=== PATIENT | male | born 1960 ===

== ENCOUNTER 2020-11-10 16:27 | Outpatient (REF) | payer MEDICAID, SELFPAY ==
--- NOTE | ~2020-11-10 | XR_ITS ---
EXAMINATION: XR LUMBOSACRAL SPINE WITH OBLIQUES CLINICAL INFORMATION: Lumbago with sciatica, right side. COMPARISON: None . TECHNIQUE: AP, both oblique, and lateral views of the lumbar spine. Lateral view of the lumbosacral junction. FINDINGS: There is normal lumbar lordosis. The vertebral heights and alignment is normal. On oblique views, there is no pars defect or listhesis. There is mild ventral spondylosis. No acute fracture or lytic process seen. The SI joints are symmetrical and normal. XR/XR lumbar spine 4V min IMPRESSION: Mild ventral spondylosis, most prominent at the L1-L2 disc level. No pars defect, listhesis, fracture or lytic process.
== END 2020-11-10 16:28 | disposition home or self-care (01) ==
LOC: HO.XRAY 16:27
PROVIDERS: PCP Internal Medicine; Visit Provider Emergency Medicine
DX: M54.41 Lumbago with sciatica, right side (principal)
CPT/HCPCS: 72110

== ENCOUNTER 2021-04-29 09:23 | Day surgery (SDC) | payer MEDICAID, SELFPAY ==
--- NOTE | 2021-04-28 14:15 | P.CONAN_ITS ---
Documented by User: Iraida Singh NP 04/28/21 14:17 HPI - Anesthesia Eval Consult details Narrative: 60yo M for ?Upper Endoscopy with Balloon Dilitation [facility] Past Medical History Medical History HTN (hypertension) Surgical History Surgical History H/O esophagectomy (~1993) Social History Social History Patient Tobacco Use Status: Never used Tobacco Use of substances other than those prescribed or required for medical reasons: No Are you DNR?: No Advance Directives: No Advance Directives Information Provided: No Meds Allergies Allergy/AdvReac Type Severity Reaction Status Date / Time No Known Allergies Allergy Unknown Unverified 05/15/20 15:55 Exam Exam Date and Time: April 28, 2021 1415 Assessment and Plan Assessment Anesthesia Assessment: Chart Reviewed Documented by User: Mary Jo Espinosa MD 04/29/21 11:11 [facility] Past Medical History Medical History HTN (hypertension) Surgical History Surgical History H/O esophagectomy (~1993) History of Problems with Anesthesia: No Social History Social History Patient Tobacco Use Status: Never used Tobacco Use of substances other than those prescribed or required for medical reasons: No Are you DNR?: No Advance Directives: No Advance Directives Information Provided: No Meds Allergies Allergy/AdvReac Type Severity Reaction Status Date / Time No Known Allergies Allergy Unknown Unverified 05/15/20 15:55 Exam Airway Mallampati Class: I TM Dist: >3cm Neck ROM: Full Heart: RRR Lungs: CTA Assessment and Plan Assessment Anesthesia Assessment: Anesthesia Plan Discussed Final Anesthetic Review History of Problems with Anesthesia: No NPO: Yes ASA Class: II Final Preanesthetic Review: Meds/Allgs Chart Reviewed, Consent Obtained/Reviewed and Anes Risks/Benef Reviewed Patient Risk: Low Procedure Risk: Intermediate Anesthetic Plan Anesthetic Plan: MAC: Disposition: Standard PACU
[2021-04-29 10:26] VITALS: BP 140/85; PULSE 55; RESP 16; TEMP 36.1; BMI 24.5
[2021-04-29] MEDS: Lactated Ringers 1,000 ML 100 ML IVCONT (10:59)
[2021-04-29 11:30] VITALS: BP 103/66; PULSE 51; RESP 18; TEMP 36.4; O2SAT 99
--- NOTE | 2021-04-29 11:32 | PM.OP ---
Brief Operative Note Date of Service: 04/29/21 Pre-op diagnosis: Dysphagia Post-op diagnosis: other (Minimal gastric retention, normal esophagogastric anastomosis) Procedure: EGD with Balloon dilation of esophagogastric anastomosis Surgeon: Adarsh Marie Anesthesia: MAC Was an Super[employer] used for this Procedure?: No Estimated blood loss (mL): 3.0 Pathology: none sent Condition: stable Disposition: PACU
[2021-04-29 11:45] VITALS: BP 108/69; PULSE 47; RESP 18; O2SAT 97
--- NOTE | 2021-04-29 11:47 | OP_ITS ---
SURGEON: Adarsh Marie MD INDICATIONS: The patient presents for evaluation of intermittent dysphagia and early satiety. Full consent has been obtained from him for this, including risks of bleeding and perforation. PREOPERATIVE DIAGNOSIS: POSTOPERATIVE DIAGNOSIS: PROCEDURE PERFORMED: Esophagogastroduodenoscopy with balloon dilation of esophagogastric anastomosis. ESTIMATED BLOOD LOSS: COMPLICATIONS: ANESTHESIA: Monitored anesthesia care. ASSISTANTS: SPECIMENS: PREOPERATIVE DIAGNOSES: Dysphagia and early satiety. POSTOPERATIVE DIAGNOSES: Dysphagia and early satiety, normal esophagogastric anastomosis, minimal gastric retention. DESCRIPTION OF PROCEDURE: The patient was placed in the left lateral decubitus position. The Olympus video gastroscope was passed in the posterior oropharynx and upper esophagus under direct vision. At 20 cm, was his esophagogastric anastomosis. This area appeared patent without any sign of stricture, inflammation, nor mass. The scope was easily passed this. The scope was advanced to the pylorus and duodenum was cannulated to the descending portion. The duodenum including the bulb appeared normal without mass or ulceration. The scope was withdrawn back into the stomach. The gastric antrum and body appeared normal. There was a small amount of retained food in the antral area, but this was quite minimal. The scope was retroflexed visualizing the proximal stomach carefully, which appeared normal, without any sign of mass or ulceration. The scope was straightened out and withdrawn back into the proximal esophagus. Given the symptomatology, I did use a [employer] 20 mm balloon to dilate the esophagogastric anastomosis for 60 seconds at the recommended pressure. There was a small amount of heme noted post dilation, but the anastomosis itself really did not appear to be any different. The esophageal mucosa proximal to this appeared normal. The scope was withdrawn from the patient. He tolerated the procedure well and was returned to the recovery area in stable condition. IMPRESSION: 1. Status post balloon dilation of esophagogastric anastomosis. 2. Minimal gastric retention. PLAN: The patient will continue his daily omeprazole. I do suspect that a lot of his upper GI symptoms of more related to his anatomy from the previous esophagectomy and gastric pull-through anastomosis. If things are stable, I will see him in 1 year for a screening colonoscopy. MD IVONE Pederson/JAMALL / [id number]
[2021-04-29 12:00] VITALS: BP 118/83; PULSE 53; RESP 18; O2SAT 97
== END 2021-04-29 12:31 | disposition home or self-care (01) ==
PROVIDERS: PCP Internal Medicine; Visit Provider Internal Medicine
PROC: (CPT 43245; principal; 2021-04-29 11:00)
DX: R13.10 Dysphagia, unspecified (principal); R13.14 Dysphagia, pharyngoesophageal phase; R68.81 Early satiety; K31.89 Other diseases of stomach and duodenum; Z90.49 Acquired absence of other specified parts of digestive tract; Z98.0 Intestinal bypass and anastomosis status; I10 Essential (primary) hypertension; Z79.899 Other long term (current) drug therapy
CPT/HCPCS: 43245; C1726

== ENCOUNTER 2022-08-04 10:07 | Outpatient (REF) | payer MEDICAID, SELFPAY ==
--- NOTE | ~2022-08-04 | FL_ITS ---
EXAMINATION: FL BARIUM SWALLOW CLINICAL INFORMATION: Gastroesophageal reflux. Previous thoracic surgery. COMPARISON: None. TECHNIQUE: Barium swallow examination is performed using fluoroscopic evaluation in addition to multiple fluoroscopic spot views. The patient is imaged both upright and prone and using both thick and thin sulfate along with effervescent granules. Fluoroscopy time: 3.1 minutes. DAP: 14.3 Gy-cm2. Images: 40. FINDINGS: Following oral administration of thick barium and barium-coated turkey in upright view, there is normal progression of bolus from the oral cavity to the pharynx and into the stomach which is pulled up and anastomosed with the proximal esophagus at the level of the first or second thoracic vertebra. There is mild narrowing at the proximal anastomosis resulting in mild ballooning of the proximal esophagus. The stomach distends well with time with no intrinsic abnormality seen involving the stomach. However, there is significant narrowing and delay in the emptying of the stomach at the duodenal bulb/distal pylorus questioning stricture. No laryngeal penetration or aspiration seen. No mucosal abnormality involving the stomach. FL/FL barium swallow IMPRESSION: Suspect narrowing along the proximal esophageal gastric anastomosis and upper thoracic spine. Suspect narrowing or stricture involving the pylorus/duodenal bulb. Recommend correlation with gastroscopy for further evaluation.
== END 2022-08-04 10:08 | disposition home or self-care (01) ==
LOC: HO.XRAY 10:07
PROVIDERS: PCP Internal Medicine; Visit Provider Internal Medicine
DX: J39.2 Other diseases of pharynx (principal); K21.9 Gastro-esophageal reflux disease without esophagitis
CPT/HCPCS: 74220

== ENCOUNTER 2023-02-17 06:14 | Day surgery (SDC) | payer MEDICAID, SELFPAY ==
--- NOTE | 2023-02-16 08:20 | HO.ANESPROP2 ---
Documented by User: Iraida Singh NP 02/16/23 08:20 HPI - Anesthesia Eval Consult details Narrative: 62yo M for Upper Endoscopy with Balloon Dilitation [facility] Past Medical History Medical History HTN (hypertension) Surgical History Surgical History (Updated 02/16/23 @ 05:37 by Gladis Reeder RN) H/O esophagectomy (~1993) Hx of esophagogastroduodenoscopy History of Problems with Anesthesia: No Social History Social History Patient Tobacco Use Status: Never used Tobacco Use of substances other than those prescribed or required for medical reasons: No Are you DNR?: No Advance Directives: No Advance Directives Information Provided: Yes Meds Allergies Allergy/AdvReac Type Severity Reaction Status Date / Time No Known Allergies Allergy Unknown Unverified 05/15/20 15:55 Home Medications Medication Instructions Recorded Confirmed Last Taken Type amlodipine 10 mg tablet 10 mg PO DAILY 02/16/23 02/16/23 Unknown History hydrochlorothiazide 25 mg tablet 25 mg PO DAILY 02/16/23 02/16/23 Unknown History omeprazole 40 mg capsule,delayed 40 mg PO 02/16/23 02/16/23 Unknown History release Exam Exam Date and Time: February 16, [id number] Assessment and Plan Assessment Anesthesia Assessment: Chart Reviewed Final Anesthetic Review History of Problems with Anesthesia: No Documented by User: Bessy Narayanan MD 02/17/23 11:00 [facility] Past Medical History Medical History HTN (hypertension) Family History Family history of problems with anesthesia: No Surgical History Surgical History (Updated 02/16/23 @ 05:37 by Gladis Reeder RN) H/O esophagectomy (~1993) Hx of esophagogastroduodenoscopy Social History Social History Patient Tobacco Use Status: Never used Tobacco Use of substances other than those prescribed or required for medical reasons: No Are you DNR?: No Advance Directives: No Advance Directives Information Provided: Yes Meds Allergies Allergy/AdvReac Type Severity Reaction Status Date / Time No Known Allergies Allergy Unknown Unverified 05/15/20 15:55 Home Medications Medication Instructions Recorded Confirmed Last Taken Type amlodipine 10 mg tablet 10 mg PO DAILY 02/16/23 02/16/23 Unknown History hydrochlorothiazide 25 mg tablet 25 mg PO DAILY 02/16/23 02/16/23 Unknown History omeprazole 40 mg capsule,delayed 40 mg PO 02/16/23 02/16/23 Unknown History release Exam Airway Mallampati Class: I TM Dist: >3cm Neck ROM: Full Loose/Missing/Broken Teeth: No Heart: rr Lungs: cta Assessment and Plan Assessment Anesthesia Assessment: Anesthesia Plan Discussed Final Anesthetic Review Family History of Problems with Anesthesia: No NPO: Yes ASA Class: II Final Preanesthetic Review: No Changes in Pt Med Stat, Meds/Allgs Chart Reviewed, Consent Obtained/Reviewed and Anes Risks/Benef Reviewed Patient Risk: Low Procedure Risk: Low Anesthetic Plan Anesthetic Plan: MAC: Disposition: Standard PACU
[2023-02-17 06:27] VITALS: BP 143/75; PULSE 59; RESP 18; TEMP 36.2; O2SAT 98; BMI 25.0
[2023-02-17] MEDS: Lactated Ringers 1,000 ML 100 ML IVCONT (07:12)
[2023-02-17 08:08] VITALS: BP 118/64; PULSE 58; RESP 16; TEMP 36.2; O2SAT 96
--- NOTE | 2023-02-17 08:17 | PM.OP ---
Brief Operative Note Date of Service: 02/17/23 Pre-op diagnosis: Dysphagia, early satiety Post-op diagnosis: other (Chronic gastritis, Patent EG anastomosis and pylorus) Procedure: EGD with balloon dilation of pylorus and EG anastomosis with an 18mm pyloric balloon Surgeon: Adarsh Marie Was an Back Tender Insulation Board used for this Procedure?: No Estimated blood loss (mL): 2.0 Pathology: none sent Condition: stable Disposition: PACU
[2023-02-17 08:23] VITALS: BP 122/80; PULSE 63; RESP 16; O2SAT 98
--- NOTE | 2023-02-17 08:33 | OP_ITS ---
DATE OF SERVICE: 02/17/2023 SURGEON: Adarsh Marie MD INDICATIONS: The patient presents for evaluation of dysphagia and early satiety, status post previous esophagectomy with gastric pull-through and esophagogastric anastomosis. Full consent was obtained from him for this, including risks of bleeding and perforation. PREOPERATIVE DIAGNOSIS: Dysphagia and early satiety. POSTOPERATIVE DIAGNOSIS: Dysphagia and early satiety, chronic appearing gastritis of entire stomach, patent pylorus and patent esophagogastric anastomosis. PROCEDURE PERFORMED: Esophagogastroduodenoscopy with balloon dilation of the pylorus and balloon dilation of esophagogastric anastomosis. ESTIMATED BLOOD LOSS: COMPLICATIONS: ANESTHESIA: Monitored anesthesia care. ASSISTANTS: SPECIMENS: DESCRIPTION OF PROCEDURE: The patient was placed in the left lateral decubitus position. The Olympus video gastroscope was passed in the posterior oropharynx and upper esophagus under direct vision. The esophagogastric anastomosis was at approximately 18 cm. There was no sign of any inflammation, mass, nor stricture. The scope easily passed this into the stomach. There was a small amount of residual food and liquid. The majority of this was able to be suctioned away easily. I was able to visualize the pyloric channel, which also appeared patent and allowed easy passage of the scope into the descending duodenum. The duodenal bulb and descending duodenum appeared normal. The pyloric channel appeared patent, but given his symptoms I did use a [employer] pyloric balloon to dilate at 18 mm at the recommended pressure for 30 seconds. Post dilation there was heme noted and some disruption of the pylorus. I did not proceed with any further dilation. The gastric antrum and body otherwise appeared normal. Motility appeared to be somewhat diminished. The scope was retroflexed, visualizing the proximal stomach, which appeared normal, without any sign of mass or ulceration. The scope was then straightened and withdrawn back into the esophagus. Again, the esophagogastric junction appeared patent, but I did use an another pyloric dilating balloon to dilate the esophagogastric anastomosis to a diameter of 18 mm for 30 seconds. Post dilation, there was minimal heme noted. Again, the anastomosis was quite patent. The scope was then withdrawn from the patient. The small area of esophagus remaining did appear normal. He tolerated the procedure well and was returned to recovery area in stable condition. IMPRESSION: 1. Chronic appearing gastritis. 2. Patent pylorus and esophagogastric anastomosis, status post balloon dilation of each. PLAN: The patient will continue on his omeprazole. I think the main issue with his eating and nocturnal reflux is his anatomy and perhaps some decreased motility. He was advised to eat small meals and to stay upright for at least several hours after eating, especially in the evening. He was advised not to eat for several hours before bedtime as well, to see if that would help to decrease his nocturnal reflux symptoms. Of note, he is scheduled for a screening colonoscopy with me on 04/27, and we shall follow up at that point. MD IVONE Pederson/KENIA / [id number] MTDD
[2023-02-17 08:38] VITALS: BP 118/85; PULSE 52; RESP 16; TEMP 36.1; O2SAT 98
== END 2023-02-17 09:18 | disposition home or self-care (01) ==
PROVIDERS: PCP Internal Medicine; Visit Provider Internal Medicine
PROC: (CPT 43245; principal; 2023-02-17 07:30)
DX: R13.14 Dysphagia, pharyngoesophageal phase (principal); R68.81 Early satiety; K29.50 Unspecified chronic gastritis without bleeding; Z90.49 Acquired absence of other specified parts of digestive tract; Z98.0 Intestinal bypass and anastomosis status; Z79.899 Other long term (current) drug therapy
CPT/HCPCS: 43245; 43249; C1726

== ENCOUNTER 2023-07-27 09:15 | Day surgery (SDC) | payer MEDICAID, SELFPAY ==
--- NOTE | 2023-07-26 09:45 | P.CONAN_ITS ---
Documented by User: Iraida Singh NP 07/26/23 09:45 HPI - Anesthesia Eval Consult details Narrative: 62yo M for Colonoscopy [facility] Past Medical History Medical History HTN (hypertension) Family History Family history of problems with anesthesia: No Surgical History Surgical History (Updated 02/16/23 @ 05:37 by Gladis Reeder RN) Hx of esophagogastroduodenoscopy H/O esophagectomy (~1993) History of Problems with Anesthesia: No Social History Social History Patient Tobacco Use Status: Never used Tobacco Use of substances other than those prescribed or required for medical reasons: No Are you DNR?: No Advance Directives: No Advance Directives Information Provided: Yes Recently lost weight without trying: No Nutrition Risks: No Nutritional Risk Meds Allergies Allergy/AdvReac Type Severity Reaction Status Date / Time No Known Allergies Allergy Unknown Unverified 05/15/20 15:55 Home Medications Medication Instructions Recorded Confirmed Last Taken Type amlodipine 10 mg tablet 10 mg PO DAILY 02/16/23 02/16/23 Unknown History hydrochlorothiazide 25 mg tablet 25 mg PO DAILY 02/16/23 02/16/23 Unknown History omeprazole 40 mg capsule,delayed 40 mg PO 02/16/23 02/16/23 Unknown History release Assessment and Plan Assessment Anesthesia Assessment: Chart Reviewed Final Anesthetic Review Family History of Problems with Anesthesia: No History of Problems with Anesthesia: No Documented by User: Pradip Ledesma MD 07/27/23 11:14 [facility] Past Medical History Medical History HTN (hypertension) Surgical History Surgical History (Updated 02/16/23 @ 05:37 by Gladis Reeder RN) Hx of esophagogastroduodenoscopy H/O esophagectomy (~1993) Social History Social History Patient Tobacco Use Status: Never used Tobacco Use of substances other than those prescribed or required for medical reasons: No Are you DNR?: No Advance Directives: No Advance Directives Information Provided: Yes Recently lost weight without trying: No Nutrition Risks: No Nutritional Risk Meds Allergies Allergy/AdvReac Type Severity Reaction Status Date / Time No Known Allergies Allergy Unknown Unverified 05/15/20 15:55 Home Medications Medication Instructions Recorded Confirmed Last Taken Type amlodipine 10 mg tablet 10 mg PO DAILY 02/16/23 02/16/23 Unknown History hydrochlorothiazide 25 mg tablet 25 mg PO DAILY 02/16/23 02/16/23 Unknown History omeprazole 40 mg capsule,delayed 40 mg PO 02/16/23 02/16/23 Unknown History release Exam Airway Mallampati Class: I TM Dist: >3cm Neck ROM: Full Partial: Lower Heart: ok Lungs: ok Assessment and Plan Assessment Anesthesia Assessment: Anesthesia Plan Discussed Final Anesthetic Review NPO: Yes ASA Class: II Final Preanesthetic Review: No Changes in Pt Med Stat, Meds/Allgs Chart Reviewed, Consent Obtained/Reviewed and Anes Risks/Benef Reviewed Patient Risk: Low Procedure Risk: Low Anesthetic Plan Anesthetic Plan: MAC: and Agree w/ Assess. and Plan Disposition: Standard PACU
[2023-07-27 09:51] VITALS: BMI 25.6
[2023-07-27 09:56] VITALS: BP 141/77; PULSE 48; RESP 16; TEMP 36.8; O2SAT 99
[2023-07-27 10:00] VITALS: BMI 25.6
[2023-07-27] MEDS: Lactated Ringers 1,000 ML 100 ML IVCONT (10:10)
--- NOTE | 2023-07-27 11:47 | PM.OP ---
Brief Operative Note Date of Service: 07/27/23 Pre-op diagnosis: Screening Post-op diagnosis: other (Diverticulosis) Procedure: Colonoscopy to the anastomosis and small bowel Surgeon: Adarsh Marie MD Anesthesia: MAC Was an Insulation Sprayer used for this Procedure?: No Estimated blood loss (mL): 0 Pathology: none sent Condition: stable Disposition: PACU
[2023-07-27 11:50] VITALS: BP 85/53; PULSE 56; RESP 14; TEMP 36.6; O2SAT 95
[2023-07-27 12:05] VITALS: BP 102/57; PULSE 43; RESP 16; TEMP 36.1; O2SAT 99
--- NOTE | 2023-07-27 18:30 | OP_ITS ---
DATE OF SERVICE: 07/27/2023 SURGEON: Adarsh Marie MD INDICATIONS: The patient presents for evaluation of colorectal cancer screening. Full consent was obtained from him for this, including risks of bleeding and perforation. PREOPERATIVE DIAGNOSIS: Colorectal cancer screening. POSTOPERATIVE DIAGNOSIS: PROCEDURE PERFORMED: Colonoscopy to the anastomosis and small bowel. ESTIMATED BLOOD LOSS: COMPLICATIONS: ANESTHESIA: Preop medication used, monitored anesthesia care. ASSISTANTS: SPECIMENS: POSTOPERATIVE DIAGNOSES: Colorectal cancer screening, sigmoid diverticulosis, and internal hemorrhoids. DESCRIPTION OF PROCEDURE: The patient was placed in the left lateral decubitus position. The digital rectal exam revealed no abnormalities. The Olympus video pediatric colonoscope was entered into the rectum and advanced to the level of the anastomosis. The small bowel was cannulated and appeared normal. The scope was withdrawn back in the colon. The anastomosis appeared normal. The scope was slowly withdrawn assessing all mucosal surfaces carefully. Preparation was excellent. I did not visualize any sign of polyps, colitis, nor angiodysplasia. There was a mild amount of sigmoid diverticulosis. In the rectum, scope was retroflexed visualizing internal hemorrhoids, but no other pathology. The rectal mucosa appeared normal. Scope was straightened and withdrawn from the patient. He tolerated the procedure well and was returned to recovery area in stable condition. IMPRESSION: 1. Diverticulosis. 2. Internal hemorrhoids. PLAN: Given today's negative exam, I would recommend a followup coloscopy in 10 years for further screening. He will continue omeprazole for his history of reflux. He will see me on a p.r.n. basis. Adarsh Marie MD RMW/MODL / [id number]
== END 2023-07-27 12:42 | disposition home or self-care (01) ==
PROVIDERS: PCP Internal Medicine; Visit Provider Internal Medicine
PROC: 0DJD8ZZ Inspection of Lower Intestinal Tract, Via Natural or Artificial Opening Endoscopic (ICD-10-PCS; CPT 45378; principal; 2023-07-27 10:40)
DX: Z12.11 Encounter for screening for malignant neoplasm of colon (principal); K57.30 Diverticulosis of large intestine without perforation or abscess without bleeding; K64.8 Other hemorrhoids; K63.89 Other specified diseases of intestine; I10 Essential (primary) hypertension
CPT/HCPCS: 45378; J2704; J3010

== ENCOUNTER 2023-11-10 08:33 | Outpatient (REF) | payer MEDICAID, SELFPAY ==
--- NOTE | ~2023-11-10 | XR_ITS ---
EXAMINATION: XR SHOULDER, LEFT CLINICAL INFORMATION: Pain for 4 days COMPARISON: None available. TECHNIQUE: Four views of the left shoulder. FINDINGS: Visualized portion of proximal left humerus demonstrate no fracture. Humeral head demonstrates good articulation the glenoid fossa. There are minimal degenerative changes of the glenohumeral and acromioclavicular joints. Visualized left-sided ribs and lung parenchyma are unremarkable. XR/XR shoulder LT min 2V IMPRESSION: Minimal degenerative changes of the left shoulder.
== END 2023-11-10 08:34 | disposition home or self-care (01) ==
LOC: HO.HHCX 08:33
PROVIDERS: Visit Provider Emergency Medicine
DX: M25.512 Pain in left shoulder (principal)
CPT/HCPCS: 73030

== ENCOUNTER 2024-01-10 18:24 | Outpatient (REF) | payer MEDICAID, SELFPAY ==
--- NOTE | ~2024-01-10 | MR_ITS ---
EXAMINATION: MR SHOULDER WITHOUT CONTRAST, LEFT CLINICAL INFORMATION: Left shoulder pain and weakness. Evaluate for rotator cuff tendon tear. COMPARISON: Left shoulder radiographs dated 11/10/2023. TECHNIQUE: MRI of the shoulder without contrast was performed on a high-field scanner. FINDINGS: Evaluation somewhat limited due to the lack of fat saturation. ROTATOR CUFF: Supraspinatus and infraspinatus tendinosis. Complete, full-thickness tear of the supraspinatus tendon with extension into the anterior leading edge of the infraspinatus tendon. Overall tearing measures up to 3.4 x 2.8 cm (AP by ML). Mild subscapularis tendinosis. No muscle atrophy or fatty infiltration. BICEPS: Intact. CORACOACROMIAL ARCH: The undersurface of the acromion is curved with subacromial spurring. [id number] acromioclavicular osteoarthritis. LABRUM/CAPSULE: No definite displaced labral tear; however, evaluation limited due to the lack of fat saturation and patient motion. Intact inferior joint capsule. GLENOHUMERAL JOINT/MARROW: Grossly intact articular cartilage. No evidence of acute osseous injury. MR/MR shoulder LT wo con IMPRESSION: 1. Supraspinatus and infraspinatus tendinosis with a complete, full-thickness tear of the supraspinatus tendon extending into the anterior leading edge of the infraspinatus tendon. Overall tearing measures 3.4 x 2.8 cm (AP x ML). Mild subscapularis tendinosis. 2. [id number] acromioclavicular osteoarthritis with subacromial spurring. 3. No definite labral tear; however, evaluation is limited due to the lack of fat saturation and patient motion.
== END 2024-01-10 18:25 | disposition home or self-care (01) ==
LOC: HO.MRI 18:24
PROVIDERS: PCP Internal Medicine; Visit Provider Registered Nurse
DX: M25.512 Pain in left shoulder (principal); R29.898 Other symptoms and signs involving the musculoskeletal system
CPT/HCPCS: 73221

== ENCOUNTER 2024-01-24 08:13 | Outpatient (AMB) | payer MEDICAID, SELFPAY ==
--- NOTE | 2024-01-24 08:20 | MHC.OFFVIS ---
Vital Signs 01/24/24 08:23 Height 5 ft 6 in Weight 158 lb BMI 25.5 Intake Visit Reasons: New Pt - Left Shoulder [place] [facility] [place] Intake Note: Quinton a 63 year old 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 male who presents today as a new patient for an evaluation of left shoulder. MRI done. Patient reports his pain has been present for about 2 months, he does not recall any injury. He has constant pain in his shoulder and is unable to reach behind his back. He was referred to PT however he has not started. His pain increased with at home exercises. Finds no relief with ibuprofen. Denies numbness or tingling. he was sent to PT b Allergies No Known Allergies Allergy (Unknown, Unverified 01/24/24 08:23) HPI HPI New Pt - Left Shoulder [place] done [place] [facility] [place]: Details: 63-year-old 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 male who presents to the office today for evaluation of left shoulder pain for 2 months. He states he has constant pain in his shoulder that is aggravated with reaching back, certain movements and with working on home exercises. He denies any numbness or tingling. He was referred to physical therapy however he has not started it. He finds no relief with ibuprofen and meloxicam. He has not had any injury in the past. 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 Review of Systems Const All systems reviewed & are unremarkable except as noted in HPI and below Physical Exam Vital Signs: BMI result Body Mass Index 25.5 Const General: cooperative, healthy appearing, comfortable, no acute distress, well developed and alert Orientation/consciousness: patient oriented x3 HEENT Head: Yes normal to inspection, Yes normocephalic and Yes atraumatic Eyes General: appearance normal, both eyes and all related structures Resp Effort & Inspection: normal respiratory effort and able to speak in complete sentences Cardio Rate: regular rate Peripheral pulses: Peripheral pulses 2+ throughout GI Palpation (GI): Soft to palpation Skin Lesions: no lesions Rashes: no rashes Neuro General: patient oriented x3 Extrem Other: Left shoulder normal to inspection. Tenderness over the bicipital groove and along the deltoid region of the shoulder. Forward flexion to 165, external rotation to 90, internal rotation to S1. Mild discomfort with RTC strength. Negative Duarte and cross body abduction. NVI. Results Reviewed Results Reviewed: XR shoulder LT min 2V IMPRESSION: Minimal degenerative changes of the left shoulder. MR shoulder LT wo con IMPRESSION: 1. Supraspinatus and infraspinatus tendinosis with a complete, full-thickness tear of the supraspinatus tendon extending into the anterior leading edge of the infraspinatus tendon. Overall tearing measures 3.4 x 2.8 cm (AP x ML). Mild subscapularis tendinosis. 2. Cetbgmyl-ua-lbawvh acromioclavicular osteoarthritis with subacromial spurring. 3. No definite labral tear; however, evaluation is limited due to the lack of fat saturation and patient motion. Assessment & Plan Assessment & Plan (1) Complete rotator cuff tear or rupture of left shoulder, not specified as traumatic: Code(s): M75.122 - Complete rotator cuff tear or rupture of left shoulder, not specified as traumatic Category: Medical Qualifiers: Rotator cuff tear trauma status: nontraumatic Qualified Code(s): M75.122 - Complete rotator cuff tear or rupture of left shoulder, not specified as traumatic Plan He does have an order for physical therapy at this time at [facility] which he will attend. I did recommend that he avoids corticosteroids in the setting of somewhat acute or chronic RTC tear. I would like him to meet with Dr. Harrell in 3-4 weeks after working on physical therapy to determine the need for surgical intervention. He is likely to develop post traumatic OA in his shoulder if left untreated but hopefully he will be working on physical therapy which will make him more functional. All his questions were answered and he is content with this plan. Patient Instructions: Scribed for Edmundo Villafana PA-C, by Brady Smith emergency medical dispatcher, on 01/24/2024 at 8:15 AM EST.? I, Edmundo Villafana PA-C, have personally reviewed and agree with the information entered by the scribe. Coding Level of Care Code New Pt Level 3 (66161) Diagnoses Nontraumatic complete tear of left rotator cuff M75.122 Rotator cuff tear trauma status: nontraumatic
[2024-01-24 08:23] VITALS: BMI 25.5
== END 2024-01-24 08:41 | disposition home or self-care (01) ==
PROVIDERS: PCP Internal Medicine; Visit Provider Physician Assistant
DX: M75.122 Complete rotator cuff tear or rupture of left shoulder, not specified as traumatic (principal)
CPT/HCPCS: 99203

== ENCOUNTER → 2024-01-24 08:13 | Outpatient (BNVA) | payer MEDICAID, SELFPAY | PROVIDERS: PCP Internal Medicine; Visit Provider Physician Assistant | DX: M75.122 Complete rotator cuff tear or rupture of left shoulder, not specified as traumatic (principal) | CPT/HCPCS: 99212 ==

== ENCOUNTER 2024-02-20 13:28 | Outpatient (AMB) | payer MEDICAID, SELFPAY ==
[2024-02-20 13:40] VITALS: BMI 25.0
--- NOTE | 2024-02-20 13:40 | MHC.OFFVIS ---
Vital Signs 02/20/24 13:40 Height 5 ft 6 in Weight 155 lb BMI 25.0 Intake Visit Reasons: O/V Lt rtc tear on MRI with NE-discuss sx s/p PT Intake Note: Quinton is a 63 yr old male who presents today to discuss his MRI of the LT shoulder. Allergies No Known Allergies Allergy (Unknown, Unverified 02/20/24 13:41) HPI HPI O/V Lt rtc tear on MRI with NE-discuss sx s/p PT: Details: This is a 63-year-old gentleman with left shoulder pain for 3 months. He is left-hand dominant. He is done physical therapy but has not been improving. He had an MRI comes in today for review. He describes pain with reaching and overhead activity and after a long day. It is better at rest. Pain radiates in a sub deltoid distribution. 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 Physical Exam Vital Signs: BMI result Body Mass Index 25.0 Const General: cooperative, healthy appearing, comfortable, no acute distress, well developed and alert Orientation/consciousness: patient oriented x3 HEENT Head: Yes normal to inspection, Yes normocephalic and Yes atraumatic Eyes General: appearance normal, both eyes and all related structures Resp Effort & Inspection: normal respiratory effort and able to speak in complete sentences Cardio Rate: regular rate Peripheral pulses: Peripheral pulses 2+ throughout GI Palpation (GI): Soft to palpation Skin Lesions: no lesions Rashes: no rashes Neuro General: patient oriented x3 Extrem Other: Left shoulder normal to inspection. 4/5 empty can. Negative lag. 35/90/130/S1 Results Reviewed Results Reviewed: I personally reviewed the MR images. 1. Supraspinatus and infraspinatus tendinosis with a complete, full-thickness tear of the supraspinatus tendon extending into the anterior leading edge of the infraspinatus tendon. Overall tearing measures 3.4 x 2.8 cm (AP x ML). Mild subscapularis tendinosis. 2. Janxxwya-zq-fjnbid acromioclavicular osteoarthritis with subacromial spurring. 3. No definite labral tear; however, evaluation is limited due to the lack of fat saturation and patient motion. Assessment & Plan Assessment & Plan (1) Complete rotator cuff tear or rupture of left shoulder, not specified as traumatic: Code(s): M75.122 - Complete rotator cuff tear or rupture of left shoulder, not specified as traumatic Category: Medical Qualifiers: Rotator cuff tear trauma status: nontraumatic Qualified Code(s): M75.122 - Complete rotator cuff tear or rupture of left shoulder, not specified as traumatic Plan: This is a healthy 63-year-old left-hand dominant gentleman with a full-thickness tear of his left rotator cuff. I reviewed the MRI with him. I discussed the pathology and the treatment options including, but not limited to nonoperative management, physical therapy, rotator cuff repair. I also explained the risks to surgery including, with a limited to, infection, pain, need for further surgery as well as stiffness of the expected duration of postoperative recovery. He expressed understanding. He will get back to me if he would like to proceed forward. Coding Level of Care Code Est Pt Level 4 (76758) Diagnoses Nontraumatic complete tear of left rotator cuff M75.122 Rotator cuff tear trauma status: nontraumatic
== END 2024-02-20 14:20 | disposition home or self-care (01) ==
PROVIDERS: PCP Internal Medicine; Referring Provider Internal Medicine; Visit Provider Orthopaedic Surgery
DX: M75.122 Complete rotator cuff tear or rupture of left shoulder, not specified as traumatic (principal)
CPT/HCPCS: 99214

== ENCOUNTER → 2024-02-20 13:28 | Outpatient (BNVA) | payer MEDICAID, SELFPAY | PROVIDERS: PCP Internal Medicine; Visit Provider Orthopaedic Surgery | DX: M75.122 Complete rotator cuff tear or rupture of left shoulder, not specified as traumatic (principal) | CPT/HCPCS: 99212 ==

== ENCOUNTER 2024-04-06 11:37 | Outpatient (AMB) | payer MEDICAID, SELFPAY ==
[2024-04-06 11:39] VITALS: BMI 25.0
--- NOTE | 2024-04-06 11:39 | MHC.OFFVIS ---
Vital Signs 04/06/24 11:39 Height 5 ft 6 in Weight 155 lb BMI 25.0 Intake Visit Reasons: OV - discuss left shoulder surgery Intake Note: Quinton is a 63 year old 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 male who presents today to further discuss surgery, left rotator cuff repair. He has pain at the end of the day and with reaching overhead. Allergies No Known Allergies Allergy (Unknown, Unverified 04/06/24 11:40) HPI HPI OV - discuss left shoulder surgery: Details: Quinton is a 63 year old 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 male who presents today to further discuss surgery, left rotator cuff repair. He has pain at the end of the day and with reaching overhead. He has a full thickness tear of the supraspinatus. 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 Physical Exam Vital Signs: BMI result Body Mass Index 25.0 Const General: cooperative, healthy appearing, comfortable, no acute distress, well developed and alert Orientation/consciousness: patient oriented x3 HEENT Head: Yes normal to inspection, Yes normocephalic and Yes atraumatic Eyes General: appearance normal, both eyes and all related structures Resp Effort & Inspection: normal respiratory effort and able to speak in complete sentences Cardio Rate: regular rate Peripheral pulses: Peripheral pulses 2+ throughout GI Palpation (GI): Soft to palpation Skin Lesions: no lesions Rashes: no rashes Neuro General: patient oriented x3 Extrem Other: Left shoulder normal to inspection. 4/5 empty can. Negative lag. 35/90/130/S1 Results Reviewed Results Reviewed: I personally reviewed the MR images. 1. Supraspinatus and infraspinatus tendinosis with a complete, full-thickness tear of the supraspinatus tendon extending into the anterior leading edge of the infraspinatus tendon. Overall tearing measures 3.4 x 2.8 cm (AP x ML). Mild subscapularis tendinosis. 2. Vunbkcom-bj-tosanv acromioclavicular osteoarthritis with subacromial spurring. 3. No definite labral tear; however, evaluation is limited due to the lack of fat saturation and patient motion. Assessment & Plan Assessment & Plan (1) Complete rotator cuff tear or rupture of left shoulder, not specified as traumatic: Code(s): M75.122 - Complete rotator cuff tear or rupture of left shoulder, not specified as traumatic Category: Medical Qualifiers: Rotator cuff tear trauma status: nontraumatic Qualified Code(s): M75.122 - Complete rotator cuff tear or rupture of left shoulder, not specified as traumatic Plan: This is a healthy 63-year-old left-hand dominant gentleman with a full-thickness tear of his left rotator cuff. I reviewed the MRI with him. I discussed the pathology and the treatment options including, but not limited to nonoperative management, physical therapy, rotator cuff repair. I also explained the risks to surgery including, with a limited to, infection, pain, need for further surgery as well as stiffness of the expected duration of postoperative recovery. He expressed understanding. Coding Level of Care Code Est Pt Level 4 (36965) Diagnoses Nontraumatic complete tear of left rotator cuff M75.122 Rotator cuff tear trauma status: nontraumatic
== END 2024-04-06 11:56 | disposition home or self-care (01) ==
PROVIDERS: PCP Internal Medicine; Referring Provider Internal Medicine; Visit Provider Orthopaedic Surgery
DX: M75.122 Complete rotator cuff tear or rupture of left shoulder, not specified as traumatic (principal)
CPT/HCPCS: 99214

== ENCOUNTER → 2024-04-06 11:37 | Outpatient (BNVA) | payer MEDICAID, SELFPAY | PROVIDERS: PCP Internal Medicine; Visit Provider Orthopaedic Surgery | DX: M75.122 Complete rotator cuff tear or rupture of left shoulder, not specified as traumatic (principal) | CPT/HCPCS: 99212 ==

== ENCOUNTER 2024-04-25 13:07 | Day surgery (SDC) | payer MEDICAID, SELFPAY ==
[2024-04-23 11:43] VITALS: BMI 25.0
--- NOTE | 2024-04-24 08:45 | HO.ANESPROP2 ---
Documented by User: Iraida Singh NP 04/24/24 08:46 HPI - Anesthesia Eval Consult details Narrative: 63yo M for Left Arthroscopic Rotator Cuff Repair PMFSH Active Problems Active Problems: All Active Problems Complete rotator cuff tear or rupture of left shoulder, not specified as traumatic (Acute) Past Medical History Medical History Chronic alcoholism in remission GERD (gastroesophageal reflux disease) HTN (hypertension) Family History Family history of problems with anesthesia: No Surgical History Surgical History Hx of esophagogastroduodenoscopy H/O esophagectomy (~1993) History of Problems with Anesthesia: No Social History Social History Patient Tobacco Use Status: Never used Tobacco Use of substances other than those prescribed or required for medical reasons: No Are you DNR?: No Advance Directives: No Advance Directives Information Provided: Yes Recently lost weight without trying: No Current occupational status: employed 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, 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 Meds Allergies Allergy/AdvReac Type Severity Reaction Status Date / Time No Known Allergies Allergy Unknown Verified 04/25/24 13:21 Home Medications ?Medication ?Instructions ?Recorded ?Confirmed ?Last Taken ?Type amlodipine 10 mg tablet 10 mg PO DAILY 02/16/23 04/25/24 04/25/24 06:00 History hydrochlorothiazide 25 mg tablet 25 mg PO DAILY 02/16/23 04/25/24 Unknown History omeprazole 40 mg capsule,delayed 40 mg PO DAILY 02/16/23 04/25/24 04/25/24 06:00 History release Exam Height,Weight and Vital Signs: Height 5 ft 6 in Weight 70.307 kg Assessment and Plan Assessment Anesthesia Assessment: Chart Reviewed Final Anesthetic Review Family History of Problems with Anesthesia: No History of Problems with Anesthesia: No Documented by User: Jennifer Olivo MD 04/25/24 14:08 [facility] Past Medical History Medical History Chronic alcoholism in remission GERD (gastroesophageal reflux disease) HTN (hypertension) Surgical History Surgical History Hx of esophagogastroduodenoscopy H/O esophagectomy (~1993) Social History Social History Patient Tobacco Use Status: Never used Tobacco Use of substances other than those prescribed or required for medical reasons: No Are you DNR?: No Advance Directives: No Advance Directives Information Provided: Yes Recently lost weight without trying: No Current occupational status: employed 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, 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 Meds Allergies Allergy/AdvReac Type Severity Reaction Status Date / Time No Known Allergies Allergy Unknown Verified 04/25/24 13:21 Home Medications ?Medication ?Instructions ?Recorded ?Confirmed ?Last Taken ?Type amlodipine 10 mg tablet 10 mg PO DAILY 02/16/23 04/25/24 04/25/24 06:00 History hydrochlorothiazide 25 mg tablet 25 mg PO DAILY 02/16/23 04/25/24 Unknown History omeprazole 40 mg capsule,delayed 40 mg PO DAILY 02/16/23 04/25/24 04/25/24 06:00 History release Exam Airway Mallampati Class: II TM Dist: >3cm Neck ROM: Full Heart: rrr Lungs: cta Assessment and Plan Final Anesthetic Review NPO: Yes ASA Class: II Final Preanesthetic Review: No Changes in Pt Med Stat, Meds/Allgs Chart Reviewed, Consent Obtained/Reviewed and Anes Risks/Benef Reviewed Patient Risk: Intermediate Procedure Risk: Intermediate Anesthetic Plan Anesthetic Plan: GA and Regional Block Disposition: Standard PACU
--- NOTE | 2024-04-25 13:16 | ECG_ITS ---
Test Reason : HTN, PREOP Blood Pressure : / mmHG Vent. Rate : 056 BPM Atrial Rate : 056 BPM P-R Int : 174 ms QRS Dur : 086 ms QT Int : 422 ms P-R-T Axes : 047 -37 139 degrees QTc Int : 407 ms Poor data quality, interpretation may be adversely affected Sinus bradycardia Left axis deviation Left ventricular hypertrophy with repolarization abnormality ( Sokolow-Forbes , Romhilt-Alonzo ) Abnormal ECG When compared with ECG of 02-DEC-2006 06:33, Non-specific change in ST segment in Anterior leads Referred By: Iraida Singh Electronically Signed By:ABELARDO JENKINS
[2024-04-25 13:21] VITALS: BP 144/83; PULSE 54; RESP 16; TEMP 37; O2SAT 97; BMI 25.2
[2024-04-25] MEDS: Lactated Ringers 1,000 ML 100 ML IVCONT (14:03)
[2024-04-25 14:15] LABS: Hemoglobin 13.6 g/dl (14.0-18.0); Mean Corpuscular HGB Conc 34.9 g/dl (31.0-36.0); Mean Corpuscular Hemoglobin 31.9 pg (27.0-33.0); Mean Corpuscular Volume 91.5 fL (80.0-98.0); Mean Platelet Volume 10.1 fL (9.4-12.4); Platelet Count 236 X10*3/uL (160-400); Red Blood Count 4.26 X10*6/uL (4.60-5.80); Red Cell Distribution Width 12.9 % (11.0-16.0); White Blood Count 7.7 X10*3/uL (4.8-10.8)
[2024-04-25 14:30] LABS: Alanine Aminotransferase 33 U/L (0-40); Albumin Level 4.1 g/dL (3.5-5.0); Alkaline Phosphatase 96 U/L (39-117); Anion Gap 14 (12-20); Aspartate Amino Transferase 24 U/L (5-37); Bilirubin Total 0.6 mg/dL (0.0-1.0); Blood Urea Nitrogen 10 mg/dL (9-16); Calcium 9.3 mg/dL (8.4-10.2); Carbon Dioxide 24 mmol/L (22-29); Chloride 108 mmol/L (96-108); Creatinine Clr Calc Pharmacy 78.4; Estimated Glomerular Filt Rate > 60; Glucose Fasting 99 mg/dL (60-99); Potassium 4.2 mmol/L (3.3-5.1); Sodium 142 mmol/L (135-145); Total Protein 6.5 g/dL (6.5-8.0)
--- NOTE | 2024-04-25 14:36 | MHC.SHP ---
Pre-Procedural Eval Section A - 24 Hr Update-Section A only Date of Service: 04/25/24 The patient is an INPATIENT: No Changes since office visit: No Cold of Flu in the past 2 weeks, No New Medical Problems, No Changes in Medication and No Patient answered all questions The patient has been examined within 24 hours of the surgical procedure. The History & Physical has been completed within 30 days and I have reviewed it.: Yes Section B - Complete if H&P > 30 days Chief Complaint: Complete rotator cuff tear or rupture of left Allergies: Allergies Allergy/AdvReac Type Severity Reaction Status Date / Time No Known Allergies Allergy Unknown Verified 04/25/24 13:21 Plan I have reviewed the history and physical and performed a pertinent physical examination on my patient. No changes have occurred unless specified. Time Spent With Patient Time: Total time managing care of this patient today ____ minutes.
--- NOTE | 2024-04-25 16:36 | PM.OP ---
Brief Operative Note Date of Service: 04/25/24 Pre-op diagnosis: Left RTC tear Post-op diagnosis: same Procedure: Repair left supraspinatus and infraspinatus with SAD Implants: Chen and nephew 4.75 helacoil double loaded x 2 and 5.5 knotless lateral row x 2 Surgeon: Roberto Harrell MD Anesthesia: GETA and regional Was an And Rescue Fire Fighter Crash Fire used for this Procedure?: No And Rescue Fire Fighter Crash Fire: Bethany Schneider Estimated blood loss (mL): 20 IV fluids (mL): 1,100 Pathology: none sent Condition: stable Disposition: PACU Assessment and Plan (No Qualifiers) Assessment and Plan (1) Complete rotator cuff tear or rupture of left shoulder, not specified as traumatic: Status: Acute Plan: LARGE REPAIR PROTOCOL
[2024-04-25 16:54] VITALS: BP 135/87; PULSE 61; RESP 18; TEMP 36.4; O2SAT 98
[2024-04-25 16:59] VITALS: BP 140/82; PULSE 53; RESP 17; O2SAT 96
[2024-04-25 17:00] VITALS: BP 131/79; PULSE 58; RESP 16; O2SAT 98
[2024-04-25 17:05] VITALS: BP 135/84; PULSE 54; RESP 16; O2SAT 98
[2024-04-25 17:20] VITALS: BP 139/84; PULSE 54; RESP 16; TEMP 36.4; O2SAT 98
--- NOTE | 2024-04-27 14:33 | W.PM.OPN ---
Operative Note Operative Note Date of Service: 04/25/24 Narrative: Date of Service: 04/25/24 Pre-op diagnosis: Left RTC tear Post-op diagnosis: same Procedure: Repair left supraspinatus and infraspinatus with SAD Implants: Chen and nephew 4.75 helacoil double loaded x 2 and 5.5 knotless lateral row x 2 Surgeon: Roberto Harrell MD Anesthesia: GETA and regional Was an Criminal Records Technician used for this Procedure?: No Criminal Records Technician: Bethany Schneider Estimated blood loss (mL): 20 IV fluids (mL): 1,100 Pathology: none sent Condition: stable Disposition: PACU Procedure in detail: Patient was brought to the operating room and placed the the beach chair position. All bony prominences were well padded and the limb was prepped and draped in standard sterile fashion. A time out was called to identify proper site, proper procedure and proper surgeon. IV antibiotics per weight were administered. I began by making a posterolateral stab incision with a 15 blade. A blunt trochar was placed into the glenohumeral joint and I insufflated the joint with saline and a 30 degree arthroscope was placed. I established an outside- in anterior portal just distal to the biceps tendon. I then began my inspection of the glenohumeral joint. There was an intact biceps anchor. There were moderate cartilage changes at the inferior glenoid without humeral head changes. The inferior and posteroinferior labrum was degenerated and torn. There was a full thickness undersurface RTC tear. The subcapularis was intact with low grade partial tearing. I debrided the loose cartilage of the glenoid and the degenerative labral tearing. I then removed the trochar and entered the subacromial space. A direct lateral portal was then established and I performed a bursectomy. The cuff was then examined. There was a full thickness tear of the supra and infraspinatus with retraction. The tear was mobile however and the quality was good. I placed two medial row double loaded anchors after using a tap just adjacent to the articular cartilage and then brought the suture limbs ( 8) through the medial cuff. I added an additional twqo looped suturesw and I then debrided the bare area down to bleeding bone and, using a cross bridge configuration, brought 5 limbs to each of two lateral 5.5 anchors. This re-approximated the cuff anatomy anatomically. I then perfomred a 5mm subacromial decompression. Once I was satisfied with the repair final images were captured and I removed all instrumentation. Portals were closed with nylon. Patient was placed in an abduction sling, extubated and brought to the recovery room in stable condition. There were no known complications.
== END 2024-04-25 17:40 | disposition home or self-care (01) ==
LOC: HO.SSS 13:08
PROVIDERS: Nurse Practitioner; PCP Internal Medicine; Visit Provider Orthopaedic Surgery
PROC: (CPT 29827; principal; 2024-04-25 15:10)
DX: M75.122 Complete rotator cuff tear or rupture of left shoulder, not specified as traumatic (principal); M19.012 Primary osteoarthritis, left shoulder; I10 Essential (primary) hypertension; Z98.890 Other specified postprocedural states
CPT/HCPCS: 29827; 29826; 36415; 80053; 85027; 93005; C1713; J0131; J0665; J0690; J1100; J2250; J2405; J2704; J3010

== ENCOUNTER → 2024-04-25 13:07 | Outpatient (BNV) | payer MEDICAID, SELFPAY | PROVIDERS: PCP Internal Medicine; Visit Provider Orthopaedic Surgery | DX: M75.122 Complete rotator cuff tear or rupture of left shoulder, not specified as traumatic (principal) | CPT/HCPCS: 29827 ==

== ENCOUNTER 2024-05-03 12:44 | Outpatient (AMB) | payer MEDICAID, SELFPAY ==
--- NOTE | 2024-05-03 12:53 | MHC.OFFVIS ---
Vital Signs 05/03/24 12:54 Height 5 ft 6 in Weight 157 lb BMI 25.3 Intake Visit Reasons: PO LT RTC 04/25/24 NE Intake Note: Quinton a 63 year old male who presents today for a post operative visit of left RTC on 04/25/24 with NE. Patient reports that he is doing well and that he has no pain as long as he takes the meds prescribed. Allergies No Known Allergies Allergy (Unknown, Verified 05/03/24 12:55) HPI HPI PO LT RTC 04/25/24 NE: Details: 63-year-old male who returns to the office today for post-op left RTC repair, 04/25/[address] Harrell. He states he has improvement in his symptoms and reports no pain as long as he takes the medications prescribed. He has not yet started with physical therapy. 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 No redness or drainage. NVI. Assessment & Plan Assessment & Plan (1) Complete rotator cuff tear or rupture of left shoulder, not specified as traumatic: Code(s): M75.122 - Complete rotator cuff tear or rupture of left shoulder, not specified as traumatic Category: Medical Qualifiers: Rotator cuff tear trauma status: nontraumatic Qualified Code(s): M75.122 - Complete rotator cuff tear or rupture of left shoulder, not specified as traumatic Plan Sutures removed today, steri strips applied. He will begin physical therapy to work on passive and active assisted ROM and periscapular stabilization, no RTC strengthening for 6 weeks. He will continue with wearing his sling with sleeping and he can remove for exercises and hygiene. He will see us back in [address] Harrell, sooner if needed. Orders: Orders PT Evaluation and Treatment Today M75.122 - Complete rotator cuff tear or rupture of left shoulder, not specified as traumatic Patient Instructions: Scribed for Edmudno Villafana PA-C, by Brady Smith medical records secretary, on 05/03/2024 at 1:00 PM EST.? I, Edmundo Villafana PA-C, have personally reviewed and agree with the information entered by the scribe. Coding Level of Care Code Global (05921) Diagnoses Nontraumatic complete tear of left rotator cuff M75.122 Rotator cuff tear trauma status: nontraumatic
[2024-05-03 12:54] VITALS: BMI 25.3
== END 2024-05-03 13:32 | disposition home or self-care (01) ==
PROVIDERS: PCP Internal Medicine; Visit Provider Physician Assistant
DX: M75.122 Complete rotator cuff tear or rupture of left shoulder, not specified as traumatic (principal)
CPT/HCPCS: 99024

== ENCOUNTER → 2024-05-03 12:44 | Outpatient (BNVA) | payer MEDICAID, SELFPAY | PROVIDERS: PCP Internal Medicine; Visit Provider Physician Assistant | DX: M75.122 Complete rotator cuff tear or rupture of left shoulder, not specified as traumatic (principal) | CPT/HCPCS: 99212 ==

== ENCOUNTER 2024-05-24 12:18 | Outpatient (AMB) | payer MEDICAID, SELFPAY ==
--- NOTE | 2024-05-24 12:22 | MHC.OFFVIS ---
Vital Signs 05/24/24 12:28 Height 5 ft 6 in Weight 157 lb BMI 25.3 Intake Visit Reasons: PO LT RTC 04/25/24 NE Intake Note: Quinton is a 63 year old 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 male who presents today for a post operative appointment s/p Left Rotator Cuff Repair 04/25/24. Allergies No Known Allergies Allergy (Unknown, Verified 05/03/24 12:55) HPI HPI PO LT RTC 04/25/24 NE: Details: Quinton is a 63 year old 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 male who presents today for a post operative appointment s/p Left Rotator Cuff Repair 04/25/24. 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 He is progressing well. Continue physical therapy. He may discontinue sling. I refilled his narcotic prescription. Medications: Changed From oxycodone-acetaminophen 5-325 mg Partial Fill upon patient request. 1 tab PO Q4-6H 7 days PRN 42 tabs 0RF pain (scale score 4-6) To oxycodone-acetaminophen 5-325 mg (Percocet) Partial Fill upon patient request. 1 tab PO Q6H PRN 28 tabs 0RF pain (scale score 4-6) 7 days Coding Level of Care Code Global (68227) Diagnoses Nontraumatic complete tear of left rotator cuff M75.122 Rotator cuff tear trauma status: nontraumatic
[2024-05-24 12:28] VITALS: BMI 25.3
== END 2024-05-24 15:26 | disposition home or self-care (01) ==
PROVIDERS: PCP Internal Medicine; Visit Provider Orthopaedic Surgery
DX: M75.122 Complete rotator cuff tear or rupture of left shoulder, not specified as traumatic (principal)
CPT/HCPCS: 99024

== ENCOUNTER → 2024-05-24 12:18 | Outpatient (BNVA) | payer MEDICAID, SELFPAY | PROVIDERS: PCP Internal Medicine; Visit Provider Orthopaedic Surgery | DX: Z47.89 Encounter for other orthopedic aftercare (principal); Z98.890 Other specified postprocedural states | CPT/HCPCS: 99212 ==

== ENCOUNTER 2024-07-09 12:35 | Outpatient (AMB) | payer MEDICAID, SELFPAY ==
--- NOTE | 2024-07-09 12:38 | MHC.OFFVIS ---
Vital Signs 07/09/24 12:40 Height 5 ft 6 in Weight 157 lb BMI 25.3 Intake Visit Reasons: PO LT RTC 04/25/24 NE Intake Note: Quinton is a 63 year old 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 male who presents today for a post operative appointment s/p Left rotator Cuff Repair 04/25/24 Allergies No Known Allergies Allergy (Unknown, Verified 05/03/24 12:55) HPI HPI PO LT RTC 04/25/24 NE: Details: Quinton is a 63 year old 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 male who presents today for a post operative appointment s/p Left rotator Cuff Repair 04/25/24 PFSH Medical History Chronic alcoholism in remission GERD (gastroesophageal reflux disease) HTN (hypertension) Surgical History Hx of esophagogastroduodenoscopy H/O esophagectomy (~1993) Social History Patient Tobacco Use Status: Never used Tobacco Current occupational status: employed 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 Assessment & Plan Assessment & Plan (1) Complete rotator cuff tear or rupture of left shoulder, not specified as traumatic: Code(s): M75.122 - Complete rotator cuff tear or rupture of left shoulder, not specified as traumatic Category: Medical Qualifiers: Rotator cuff tear trauma status: nontraumatic Qualified Code(s): M75.122 - Complete rotator cuff tear or rupture of left shoulder, not specified as traumatic Plan: Quinton feels well status post rotator cuff repair. Continue PT per large repair protocol. I have renewed his narcotic prescription for 1 a day p.r.n.. This would be the last prescription. Orders: Orders PT Evaluation and Treatment Today M75.122 - Complete rotator cuff tear or rupture of left shoulder, not specified as traumatic Medications: Changed From oxycodone-acetaminophen 5-325 mg (Percocet) Partial Fill upon patient request. 1 tab PO Q8H 7 days PRN 21 tabs 0RF pain (scale score 4-6) To oxycodone-acetaminophen 5-325 mg (Percocet) Partial Fill upon patient request. 1 tab PO DAILY 21 days PRN 21 tabs 0RF pain (scale score 4-6) Coding Level of Care Code Global (96635) Diagnoses Nontraumatic complete tear of left rotator cuff M75.122 Rotator cuff tear trauma status: nontraumatic
[2024-07-09 12:40] VITALS: BMI 25.3
== END 2024-07-09 13:26 | disposition home or self-care (01) ==
PROVIDERS: PCP Internal Medicine; Visit Provider Orthopaedic Surgery
DX: M75.122 Complete rotator cuff tear or rupture of left shoulder, not specified as traumatic (principal)
CPT/HCPCS: 99024

== ENCOUNTER → 2024-07-09 12:35 | Outpatient (BNVA) | payer MEDICAID, SELFPAY | PROVIDERS: PCP Internal Medicine; Visit Provider Orthopaedic Surgery | DX: Z09 Encounter for follow-up examination after completed treatment for conditions other than malignant neoplasm (principal); Z87.39 Personal history of other diseases of the musculoskeletal system and connective tissue; Z98.890 Other specified postprocedural states | CPT/HCPCS: 99212 ==

== ENCOUNTER 2024-07-12 12:47 | Outpatient (RCR) | payer MEDICAID, SELFPAY | END 2024-10-05 07:51 | disposition home or self-care (01) | LOC: HO.PT 12:47 | PROVIDERS: PCP Internal Medicine; Visit Provider Orthopaedic Surgery | DX: M75.122 Complete rotator cuff tear or rupture of left shoulder, not specified as traumatic (principal) ==

== ENCOUNTER 2024-10-02 17:06 | Outpatient (REF) | payer MEDICAID, SELFPAY ==
--- OUTSIDE RECORDS SUMMARY | 2024-10-02 17:12 | XMS_ITS | Encounter Summary ---
Author Organization [employer] Address [address] [place] [address] [address] [place] [address] Care Team Providers Care Brick Washer Name Role Phone Rick Brian MD Primary Care Provide r Reason for Visit * Reason Comments Med Refill Encounter Details Date Type Department Care Team (Late st Contact Info) Description 09/12/2024 Refill [facility] [address] [place] [address] Rick Brian MD [address] [place] [address] Social History Tobacco Use Types Packs/Day Years Used Date Smoking Tobacco: Never Smokeless Tobacco: Never Sex and Gender Information Value Date Recorded Sex Assigned at Male 06/28/2022 10:17 AM EDT Legal Sex Male 10:17 AM EDT Gender Identity Male 06/28/2022 10:17 AM EDT Sexual Orientation Choose not to disclose 2021 10:17 AM EDT documented as of this encounter Plan of Treatment Not on file documented as of this encounter Visit Diagnoses Not on filedocumented in this encounter Care Teams Brick Washer Relationship Specialty Start Date End Date Rick Brian MD [address] [place], [place] [phone] PCP - General Internal Medicine 07/01/14 documented as of this encounter
--- OUTSIDE RECORDS SUMMARY | 2024-10-02 17:12 | XMS_ITS | Encounter Summary ---
Author Organization [employer] Address [address] [place] [address] [address] [place] [address] Care Team Providers Care Director Independent Name Role Phone Rick Brian MD Primary Care Provide r Reason for Visit * Reason Comments [facility] - Office Visit hasnt seen PCP in mo re than 1 year Encounter Details Date Type Department Care Team ([facility] st Contact Info) Description 10/02/2024 2:00 PM EST Office Visit [facility] [address] [place], [place] [phone] Rick Brian MD [address] [place] [address] Primary hypertension (Primary Dx); Gastroesophageal reflux disease without esophagitis; Lumbar spondylosis; Tinnitus of both ears; Heart murmur; Preventative health care; S/P left rotator cuff repair; Encounter for immunization; Dysuria; Raynaud's disease without gangrene Social History Tobacco Use Types Packs/Day Years Used Date Smoking Tobacco: Never Passive Smoke Exposure: Never Smokeless Tobacco: Never Tobacco Cessation:Counseling Given: Not Answered Depression Answer Date Recorded Patient Health Questionnaire-9 Score 0 10/02/2024 Patient Health Questionnaire-9 Score 0 10/02/2024 Last PHQ-9: Questionnaire Data Not on file 0 10/02/2024 Housing Stability Answer Date Recorded What is your housing situation today? I have jluis henley 10/02/[address] you li ve. Do you have problems with any of the following? None of the above 10/02/2024 Food Insecurity Answer Date Recorded Within the past 12 months, y ou worried that your food would run out before you got money to buy more: Never True 10/02/2024 Within the past 12 months,th e food you bought just didn't last and you didn't have enough money to get more: Never True 11/2024 Transportation Answer Date Recorded In the past 12 months, has l ack of transportation kept you from medical appts, meetings, work or from getting things needed for daily living? No 10/02/2024 Utilities Answer Date Recorded In the past 12 months, has t he electric, gas, oil or water company threatened to shut off services in your home? No 10/02/2024 Depression Answer Date Recorded Patient Health Questionnaire-2 Score 0 10/02/2024 Internet Access Answer Date Recorded Internet Access Q1 Yes 10/02/2024 Internet Access Q2 Not on file 10/02/2024 Sex and Gender Information Value Date Recorded Sex Assigned at Male 06/28/2022 10:17 AM EDT Legal Sex Male 10:17 AM EDT Gender Identity Male 06/28/2022 10:17 AM EDT Sexual Orientation Choose not to disclose 2021 10:17 AM EDT documented as of this encounter Last Filed Vital Signs Vital Sign Reading Time Taken Comments Blood Pressure 140/82 10/02/2024 2:33 PM EST Pulse 72 10/02/2024 1:49 PM EST Temperature 36 ??C (96.8 ??F) 10/02/2024 1:49 PM EST Respiratory Rate 20 10/02/2024 1:49 PM EST Oxygen Saturation 97% 10/02/2024 1:49 PM EST Inhaled Oxygen Concentration - - Weight 74.1 kg (163 lb 6.4 oz) 10/02/2024 1:49 P M EST Height 167.6 cm (5' 6 ) 10/02/2024 1:49 PM EST Body Mass Index 26.37 10/02/2024 1:49 PM EST documented in this encounter Progress Notes * Rick Araya MD - 10/02/2024 2:00 PM EST SUBJECTIVE Quinton Keene is a 63 y.o. male who presents for [facility] - Office Visit (hasnt seen PCP in more than 1 year). Hypertension This is a chronic problem. Pertinent negatives include no chest pain, headaches or shortness of breath. Difficulty Urinating This is a new problem. The current episode started in the past 7 days. The problem occurs intermittently. The pain is at a severity of 3/10. The pain is mild. There has been no fever. Associated symptoms include frequency, hesitancy and urgency. Pertinent negatives include no chills, flank pain or hematuria. He has tried nothing for the symptoms. Review of Systems Constitutional: Negative for chills and fever. HENT: Negative for sore throat. Respiratory: Negative for cough and shortness of breath. Cardiovascular: Negative for chest pain. Gastrointestinal: Negative for abdominal pain. Genitourinary: Positive for dysuria, frequency, hesitancy and urgency. Negative for flank pain and hematuria. Neurological: Negative for headaches. No Known Allergies OBJECTIVE Vitals: 10/02/24 1349 10/02/24 1433 BP: (!) 161/88 140/82 BP Location: Left arm Patient Position: Sitting BP Cuff Size: Adult Pulse: 72 Resp: 20 Temp: 96.8 ??F (36 ??C) TempSrc: Temporal SpO2: 97% Weight: 163 lb 6.4 oz (74.1 kg) Height: 5' 6 (1.676 m) Physical Exam Vitals reviewed. Constitutional: Appearance: Normal appearance. HENT: Head: Normocephalic and atraumatic. Right Ear: External ear normal. Left Ear: External ear normal. Nose: Nose normal. Mouth/Throat: Mouth: Mucous membranes are moist. Eyes: Conjunctiva/sclera: Conjunctivae normal. Cardiovascular: Rate and Rhythm: Normal rate and regular rhythm. Pulmonary: Effort: Pulmonary effort is normal. Breath sounds: Normal breath sounds. Skin: General: Skin is warm. Neurological: Mental Status: He is alert. Mental status is at baseline. Assessment/Plan Problem List Items Addressed This Visit Hypertension - Primary Patient is here for a f/u visit BP controlled on a regimen of: Norvasc 10 mg po daily and Hctz 25 mg po daily. for now will continue with current regimen Most recent electrolytes, Bun and Creatinine done on: Lab Results Component Value Date NA 142 04/25/2024 K 4.2 04/25/2024 CL 108 04/25/2024 BUN 10 04/25/2024 BUN 10 07/15/2022 CREATININE 0.87 04/25/2024 were within normal limits. Relevant Medications amLODIPine (Norvasc) 10 MG tablet hydroCHLOROthiazide (HYDRODiuril) 25 MG tablet Other Relevant Orders Lipid Panel, Standard Comprehensive Metabolic Panel Gastroesophageal reflux disease Pt here for a f/u Pt on previous visit had complained that his GERD sx were not controlled on PPI, Pt was referred back to Dr Marie. He underwent EGD 04/29/2021. Dr Marie performed a ballon dilataion of his esophagogastric anastomosis Of note he has a Hx Stricture and stenosis of esophagus Barium Swallow 08/04/2022 showed: Suspect narrowing along the proximal esophageal gastric anastomosis and upper thoracic spine. Suspect narrowing or stricture involving the pylorus/duodenal bulb. Recommend correlation with gastroscopy for further evaluation. On 02/17/2023 he underwent a Esophagogastroduodenoscopy with balloon dilation of the pylorus and balloon dilation of esophagogastric anastomosis by Dr. Marie that showed: 1. Chronic appearing gastritis. 2. Patent pylorus and esophagogastric anastomosis, status post balloon dilation of each. Dr Marie recommended to continue on his omeprazole and follow up for a screening colonoscopy with him on 06/2023 this showed: IMPRESSION: 1. Diverticulosis. 2. Internal hemorrhoids. He recommended a followup coloscopy in 10 years Relevant Medications omeprazole (PriLOSEC) [address] gonzalez Lumbar spondylosis Pt here for a f/u Pt with previous c/o right sided lower extremity pain that he described as severe 04/07 associated with right sided weakness and tingling, had been unable to work wince 10/28/2020 Initial x-ray was unremarkable, Pt has been treated with muscle relaxants, NSAIDS, Tylenol with Codeine, Prednisone and most recently a Medrol dose pack MRI of the LS spine showed: Moderate degenerative disc disease at L4-L5 with a broad based disc bulge and shallow right para central /subarticular disc protrusion which contacts the traversing right L5 nerve root. Bilateral facet arthropathy and thickening of the ligamentum flavum as mild to moderate bilateral foraminal stenosis, among other findings. Pt continues to follow with [facility] for steroid injections, he was last seen 03/10/2021 Tinnitus of both ears Pt with previous c/o persistent bilateral tinnitus. Physical exam within normal limits. Pt reports working at a [employer] for seven years where hewas examined every year for his hearing. ENT evaluation done 10/02/2018. Diagnosed with bilateral sensorineural hearing loss and discussed with him strategies to mask it. Pt was referred to Neurology for a second opinion. CT of brain to r/o intracranial pathology showed a questionable soft tissue abnormality middle ear for which an MRI was recommended , He was last seen by Neurology who ordered MRI brain with and without contrast 06/13/2019 showed Normal IACs No further intervention Heart murmur Previously noted to have a DONNA ECHO done at [facility] ? a cardiac mass. He was seen by [facility] who ordered a Cardiac MRI. [place] [facility] showed [place] cardiac mass, only dilated mid ascending aorta 4.2 cm x 4.2 cm. Pt was last seen by Cardiology 06/2023 Preventative health care PSA: 07/15/2022 normal, will repeat Colonoscopy: 06/[address] Marie 10 yr follow up Relevant Orders PSA, Screen S/P left rotator cuff repair s/p Left rotator Cuff Repair 04/25/[address] Harrell Dysuria Pt with c/o dysuria, urgency and tenesmus U/A with trace Leuks, neg blood Early UTI Plan: Levaquin 500 mg po daily x 10 days UA sent for Ucx , GC and Chalmydia, RPR, PSA Relevant Medications levoFLOXacin (Levaquin) 500 MG tablet Other Relevant Orders POCT Urinalysis (Completed) Syphilis Screen Chlamydia/N. Gonorrhoeae RNA, TMA, Urine HIV-1/2 Antigen and Antibodies, Fourth Generation, with Reflexes Hepatitis C Antibody with Reflex to HCV, RNA, Quantitative, Real-Time PCR Hepatitis B surface antigen, EIA Hepatitis B Surface Antibody, Qualitative Hepatitis B Core Antibody, Total Culture, Urine, Routine Raynaud's disease On Amlodipine Other Visit Diagnoses Encounter for immunization Relevant Orders TDAP VACCINE 7 yrs + (Completed) FLU VACCINE TRIVALENT (Fluarix) 6 mo + (Completed) documented in this encounter Miscellaneous Notes * Assessment & Plan Note - Rick Araya MD - 10/02/2024 3:32 PM EST Associated Problem(s): Raynaud's disease On Amlodipine * Assessment & Plan Note - Rick Araya MD - 10/02/2024 3:31 PM EST Associated Problem(s): Dysuria Pt with c/o dysuria, urgency and tenesmus U/A with trace Leuks, neg blood Early UTI Plan: Levaquin 500 mg po daily x 10 days UA sent for Ucx , GC and Chalmydia, RPR, PSA * Assessment & Plan Note - Rick Araya MD - 10/02/2024 2:34 PM EST Associated Problem(s): S/P left rotator cuff repair s/p Left rotator Cuff Repair 04/25/[address] Harrell * Assessment & Plan Note - Rick Araya MD - 10/02/2024 2:30 PM EST Associated Problem(s): Preventative health care PSA: 07/15/2022 normal, will repeat Colonoscopy: 06/[address] Marie 10 yr follow up * Assessment & Plan Note - Rick Araya MD - 10/02/2024 2:27 PM EST Associated Problem(s): Heart murmur Previously noted to have a DONNA ECHO done at [facility] ? a cardiac mass. He was seen by [facility] who ordered a Cardiac MRI. [place] [facility] [place] showed NO cardiac mass, only dilated mid ascending aorta 4.2 cm x 4.2 cm. Pt was last seen by Cardiology 06/2023 * Assessment & Plan Note - Rick Araya MD - 10/02/2024 2:25 PM EST Associated Problem(s): Tinnitus of both ears Pt with previous c/o persistent bilateral tinnitus. Physical exam within normal limits. Pt reports working at a [employer] for seven years where hewas examined every year for his hearing. ENT evaluation done 10/02/2018. Diagnosed with bilateral sensorineural hearing loss and discussed with him strategies to mask it. Pt was referred to Neurology for a second opinion. CT of brain to r/o intracranial pathology showed a questionable soft tissue abnormality middle ear for which an MRI was recommended , He was last seen by Neurology who ordered MRI brain with and without contrast 06/13/2019 showed Normal IACs No further intervention * Assessment & Plan Note - Rick Araya MD - 10/02/2024 2:24 PM EST Associated Problem(s): Lumbar spondylosis Pt here for a f/u Pt with previous c/o right sided lower extremity pain that he described as severe 8/10 associated with right sided weakness and tingling, had been unable to work wince 10/28/2020 Initial x-ray was unremarkable, Pt has been treated with muscle relaxants, NSAIDS, Tylenol with Codeine, Prednisone and most recently a Medrol dose pack MRI of the LS spine showed: Moderate degenerative disc disease at L4-L5 with a broad based disc bulge and shallow right para central /subarticular disc protrusion which contacts the traversing right L5 nerve root. Bilateral facet arthropathy and thickening of the ligamentum flavum as mild to moderate bilateral foraminal stenosis, among other findings. Pt continues to follow with [facility] for steroid injections, he was last seen 03/10/2021 * Assessment & Plan Note - Rick Araya MD - 10/02/2024 2:21 PM EST Associated Problem(s): Gastroesophageal reflux disease Pt here for a f/u Pt on previous visit had complained that his GERD sx were not controlled on PPI, Pt was referred back to Dr Marie. He underwent EGD 04/29/2021. Dr Marie performed a ballon dilataion of his esophagogastric anastomosis Of note he has a Hx Stricture and stenosis of esophagus Barium Swallow 08/04/2022 showed: Suspect narrowing along the proximal esophageal gastric anastomosis and upper thoracic spine. Suspect narrowing or stricture involving the pylorus/duodenal bulb. Recommend correlation with gastroscopy for further evaluation. On 02/17/2023 he underwent a Esophagogastroduodenoscopy with balloon dilation of the pylorus and balloon dilation of esophagogastric anastomosis by Dr. Marie that showed: 1. Chronic appearing gastritis. 2. Patent pylorus and esophagogastric anastomosis, status post balloon dilation of each. Dr Marie recommended to continue on his omeprazole and follow up for a screening colonoscopy with him on 06/2023 this showed: IMPRESSION: 1. Diverticulosis. 2. Internal hemorrhoids. He recommended a followup coloscopy in 10 years * Assessment & Plan Note - Rick Araya MD - 10/02/2024 2:15 PM EST Associated Problem(s): Hypertension Patient is here for a f/u visit BP controlled on a regimen of: Norvasc 10 mg po daily and Hctz 25 mg po daily. for now will continue with current regimen Most recent electrolytes, Bun and Creatinine done on: Lab Results Component Value Date NA 142 04/25/2024 K 4.2 04/25/2024 CL 108 04/25/2024 BUN 10 04/25/2024 BUN 10 07/15/2022 CREATININE 0.87 04/25/2024 were within normal limits. documented in this encounter Plan of Treatment Scheduled Orders Name Type Priority Associated Diagnoses Orde r Schedule Lipid Panel, Standard Lab Routine Primary hypertension Ordered: 10/02/2024 Comprehensive Metabolic Panel Lab Routine Primary hypertension Ordered: 10/02/2024 PSA, Screen Lab Routine Preventative health care Ordered: 10/02/2024 Syphilis Screen Lab Routine Dysuria Expected: 10/02/2024 (Approximate), Expires: 10/02/2025 Chlamydia/N. Gonorrhoeae RNA, TMA, Urine Microbiology Routine Dysuria Expected: 10/02/2024 (Approximate), Expires: 10/02/2025 HIV-1/2 Antigen and Antibodies, Fourth Generation, with Reflexes Lab Routine Dysuria Expected: 10/02/2024 (Approximate), Expires: 10/02/2025 Hepatitis C Antibody with Reflex to HCV, RNA, Quantitative, Real-Time PCR Lab Routine Dysuria Expected: 10/02/2024 (Approximate), Expires: 10/02/2025 Hepatitis B surface antigen, EIA Lab Routine Dysuria Expected: 10/02/2024 (Approximate), Expires: 10/02/2025 Hepatitis B Surface Antibody, Qualitative Lab Routine Dysuria Expected: 10/02/2024 (Approximate), Expires: 10/02/2025 Hepatitis B Core Antibody, Total Lab Routine Dysuria Expected: 10/02/2024 (Approximate), Expires: 10/02/2025 Culture, Urine, Routine Microbiology Routine Dysuria Expected: 10/02/2024 (Approximate), Expires: 10/02/2025 documented as of this encounter Procedures Procedure Name Priority Date/Time Associated Diagnosis Comments POCT URINALYSIS DIPSTICK Routine 10/02/2024 2:48 PM EST Dysuria documented in this encounter Results * POCT Urinalysis (10/02/2024 2:48 PM EST) Color, UA Yellow Clarity, UA Clear Glucose, UA Negative Bilirubin, UA Negative Ketones, UA Negative Spec Grav, UA 1.030 Blood, UA Negative Negative, None Detected pH, UA 5.5 Protein, UA Negative Urobilinogen, UA 0.2 Leukocytes, UA Trace Negative, Rare, Trace Nitrite, UA Negative Negative, None Detected Appearance, UA yellow QC Media Lot # [id number] Lot# Expiration Date Urine 10/02/2024 2:48 PM EST Rick Araya MD POINT OF CARE TEST EN TER/EDIT ORDERABLES Final Result documented in this encounter Visit Diagnoses Diagnosis Primary hypertension- Primary Unspecified essential hypertension Gastroesophageal reflux disease without esophagitis Esophageal reflux Lumbar spondylosis Lumbosacral spondylosis without myelopathy Tinnitus of both ears Unspecified tinnitus Heart murmur Undiagnosed cardiac murmurs Preventative health care Routine general medical examination at a health care facility S/P left rotator cuff repair Encounter for immunization Dysuria Raynaud's disease without gangrene documented in this encounter Additional Health Concerns Assessment Noted Time PHQ-9 Depression Total Score: 0 10/02/19 25 1:54 PM EST documented as of this encounter Care Teams Director Independent Relationship Specialty Start Date End Date Rick Brian MD [address] [place] [address] PCP - General Internal Medicine 07/01/14 documented as of this encounter
--- OUTSIDE RECORDS SUMMARY | 2024-10-02 17:12 | XMS_ITS | Encounter Summary ---
Author Organization [employer] Address [address] [place] [address] [address] [place] [address] Care Team Providers Care Birth Attendant Name Role Phone Rick Brian MD Primary Care Provide r Reason for Visit * Reason Comments Med Refill Encounter Details Date Type Department Care Team (Late st Contact Info) Description 11/29/2023 Refill [facility] [address] [place] [address] Rick Brian MD [address] [place] [address] Social History Tobacco Use Types Packs/Day Years [...] on filedocumented in this encounter Care Teams Birth Attendant Relationship Specialty Start Date End Date Rick Brian MD [address] [place], [place] [phone] PCP - General Internal Medicine 07/01/14 documented as of this encounter
--- OUTSIDE RECORDS SUMMARY | 2024-10-02 17:12 | XMS_ITS | Encounter Summary ---
Author Organization [employer] Address [address] [facility] 7t [place] [address] Care Team Providers Care Medical Record Librarians Teacher Name Role Phone Rick Brian MD Primary Care Provide r Encounter Details Date Type Department Care Team (Latest Contact Info) Description 10/02/2024 Travel Social History Tobacco Use Types Packs/Day Years Used Date Smoking Tobacco: Never Passive Smoke Exposure: Never Smokeless Tobacco: Never Depression Answer Date Recorded Patient Health Questionnaire-9 [...] Diagnoses Not on filedocumented in this encounter Additional Health Concerns Assessment Noted Time PHQ-9 Depression Total Score: 0 10/02/19 25 1:54 PM EST documented as of this encounter Care Teams Medical Record Librarians Teacher Relationship Specialty Start Date End Date Rick Brian MD [address] [place] [phone] PCP - General Internal Medicine 07/01/14 documented as of this encounter
--- OUTSIDE RECORDS SUMMARY | 2024-10-02 17:12 | XMS_ITS | Encounter Summary ---
Author Organization [employer] Address [address] [facility] 7t [place] [address] Care Team Providers Care Security Threat Analyst Name Role Phone Rick Brian MD Primary Care Provide r Reason for Visit * Reason Onset Date Comments Chart Prep 10/01/2024 Encounter Details Date Type Department Care Team ([facility] st Contact Info) Description 10/01/2024 Telephone [facility] MEDICINE [address] [place], [place] [phone] Rick Brian MD [address] [place], [place] [phone] Chart Prep Social History Tobacco Use Types Packs/Day Years Used Date Smoking Tobacco: Never Smokeless Tobacco: Never Depression Answer Date [...] AM EDT documented as of this encounter Miscellaneous Notes * Telephone Encounter - Ramona Rivas [place] - 10/01/2024 2:09 PM EST Chart Prep Labs: not applicable Images: not applicable Vaccines due: Covid Due, Tdap Due, PCV20 Due, Flu Due, and Shingles in pharmacy Due Referrals: Not Applicable Screenings: Colonoscopy and HIV screening Overdue care gaps: Sbirt, SDOH, PHQ-9, and Oral Health Chart prep for upcoming appt with Dr.Esparza esqueda. LB documented in this encounter Plan of Treatment Not on file documented as of this encounter Visit Diagnoses Not on filedocumented in this encounter Care Teams Security Threat Analyst Relationship Specialty Start Date End Date Rick Brian MD [address] [place] [phone] PCP - General Internal Medicine 07/01/14 documented as of this encounter
--- OUTSIDE RECORDS SUMMARY | 2024-10-02 17:12 | XMS_ITS | Clinical Summary ---
Author Organization [employer] Address [address] [place] [address] 7t [place] [address] Care Team Providers Care Steam Conditioning Operator Name Role Phone Rick Brian MD Primary Care Provide r Allergies No known active allergies Medications triamcinolone (Kenalog) 0.5 % cream APPLY TO THE AFFECTED AREA TOPICALLY two (2) times a day. apply a thin layer 60 g 02/19/20 23 Active triamcinolone (Kenalog) 0.5 % cream APPLY TO THE AFFECTED AREA TOPICALLY two (2) times a day. apply a thin layer 12/21/19 23 Active Bisacodyl EC 5 MG EC tablet Take 5 mg by mouth if needed each day for constipation . 07/26/20 23 Active Diclofenac Sodium 1 % gel APPLY 1 GRAMOS TOPICALLY IN THE MORNING, AT NOON, AND AT BEDTIME NEEDED FOR PAIN AND SWELLING 100 g 08/10/20 24 Active meloxicam (Mobic) 7.5 MG tablet TAKE 1 TABLET BY MOUTH two (2) times a day 60 tablet 08/10/20 24 Active amLODIPine (Norvasc) 10 MG tabletIndicatio ns:Primary hypertension Take 1 tablet (10 mg) by mouth Once per day. 90 tablet 1 10/02/19 25 Active hydroCHLOROthia zide (HYDRODiuril) 25 MG tabletIndicatio ns:Primary hypertension Take 1 tablet (25 mg) by mouth Once per day. 90 tablet 1 10/02/19 25 Active omeprazole (PriLOSEC) [address] capsuleIndicati ons:Gastroesoph ageal reflux disease without esophagitis Take 1 capsule (40 mg) by mouth before breakfast. Do not crush or chew. 180 capsule 1 10/02/19 Active levoFLOXacin (Levaquin) 500 MG tabletIndicatio ns:Dysuria Take 1 tablet (500 mg) by mouth Once per day for 10 days. 10 tablet 10/02/19 25 025 Active omeprazole (PriLOSEC) [address] capsuleIndicati ons:Gastroesoph ageal reflux disease without esophagitis Take 1 capsule by mouth twice daily BEFORE BREAKFAST AND DINNER 180 capsule 02/19/20 23 025 Discontinued(Re order (will not trigger notification to Pharmacy)) amLODIPine (Norvasc) 10 MG tablet TAKE 1 TABLET BY MOUTH ONCE DAILY 90 tablet 1 06/05/20 24 025 Discontinued hydroCHLOROthia zide (HYDRODiuril) 25 MG tabletIndicatio ns:Primary hypertension TAKE 1 TABLET BY MOUTH ONCE DAILY 90 tablet 1 06/05/20 24 025 Discontinued(Re order (will not trigger notification to Pharmacy)) amLODIPine (Norvasc) 10 MG tablet TAKE 1 TABLET BY MOUTH ONCE DAILY 90 tablet 1 09/13/19 25 025 Discontinued(Re order (will not trigger notification to Pharmacy)) Active Problems Problem Noted Date Diagnosed Date Tinnitus of both ears 10/02/2024 Assessment & Plan (10/02/2024 2:25 PM EST): Pt with previous c/o persistent bilateral tinnitus. Physical exam within normal limits. Pt reports working at a [employer] for seven years where he was examined every year for his hearing. ENT [...] Normal IACs No further intervention Heart murmur 10/02/2024 Assessment & Plan (10/02/2024 2:27 PM EST): Previously noted to have a DONNA ECHO done at [facility] ? a cardiac mass. He was seen by Recruiting Specialist who ordered a Cardiac MRI. This was done at [facility] and showed NO cardiac mass, only dilated mid ascending aorta 4.2 cm x 4.2 cm. Pt was last seen by Cardiology 06/2023 Preventative health care 10/02/2024 Assessment & Plan (10/02/2024 2:30 PM EST): PSA: 07/15/2022 normal, will repeat Colonoscopy: 06/[address] Marie 10 yr follow up S/P left rotator cuff repair 10/02/2024 Assessment & Plan (10/02/2024 2:34 PM EST): s/p Left rotator Cuff Repair 04/25/[address] Harrell Dysuria 10/02/2024 Assessment & Plan (10/02/2024 3:32 PM EST): Pt with c/o dysuria, urgency and tenesmus U/A with trace Leuks, neg blood Early UTI Plan: Levaquin 500 mg po daily x 10 days UA sent for Ucx , GC and Chalmydia, RPR, PSA Chronic alcoholism in remission 11/09/2023 Diverticular disease of colon 11/09/2023 Lumbar spondylosis 11/11/2020 Assessment & Plan (10/02/2024 2:24 PM EST): Pt here for a f/u Pt with [...] findings. Pt continues to follow with [facility] for steroid injections, he was last seen 03/10/2021 Gastroesophageal reflux disease 11/07/2013 Assessment & Plan (10/02/2024 2:22 PM EST): Pt here for a f/u Pt on [...] recommended a followup coloscopy in 10 years Stricture of esophagus 04/11/2012 Hypertension 02/29/2012 Assessment & Plan (10/02/2024 2:15 PM EST): Patient is here for a f/u visit [...] CREATININE 0.87 04/25/2024 were within normal limits. 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 Hemorrhoids 01/10/2012 Raynaud's disease 04/11/2009 Assessment & Plan (10/02/2024 3:32 PM EST): On Amlodipine Encounters Date Type Department Care Team Description 10/02/2024 2:00 PM EST Office Visit [address] [address] Rick Brian MD Primary hypertension (Primary Dx); Gastroesophageal reflux disease without esophagitis; Lumbar spondylosis; Tinnitus of both ears; Heart murmur; Preventative health care; S/P left rotator cuff repair; Encounter for immunization; Dysuria; Raynaud's disease without gangrene 10/02/2024 Travel 10/01/2024 Telephone [facility] MEDICINE [address] [place], [place] [phone] Rick Brian MD Chart Prep 09/12/2024 Refill [facility] CHC MED & PEDS [address] [place], [place] [phone] Rick Brian MD 08/09/2024 Refill [facility] WALK-IN CENTER [address] [place], [place] [phone] Rick Brian MD from Last 3 Months Immunizations Name Administration Dates Next Due Hep B, adult 11/18/2008,05/16/2008,04/01/2008 Influenza injectable quadriv alent IIV4 with preservative 05/23/2018,07/20/2016 Influenza injectable quadriv alent preservative free 05/27/2022,05/29/2015 Influenza, IIV3, injectable 09/17/2014, 0 Influenza, Split (incl. kamilah fied surface antigen) 08/06/2013 Influenza, seasonal, injecta ble, preservative free 10/02/2024 MMR 03/10/2011 TD (adult), 2 Lf tetanus tox oid, preservative free, adsorbed 02/13/2008 Tdap 10/02/2024,04/11/2012 Social History Tobacco Use Types Packs/Day Years [...] not to disclose 2021 10:17 AM EDT Last Filed Vital Signs Vital Sign Reading [...] Mass Index 26.37 10/02/2024 1:49 PM EST Plan of Treatment Health Maintenance Due Date Last Done Comments CT Colonography 1960 FIT DNA/Cologuard 1960 FIT 1960 FOBT 1960 HIV Screening 1960 Sigmoidoscopy 1960 Hepatitis C Screening 1978 Pneumococcal Vaccine: 50+ Years (1 of 2 - PCV) 12/24/1979 Zoster Vaccines (1 of 2) 2010 COVID-19 Vaccine (4 - season) 2024 09/02/2021, 10/30/2020, 10/09/2020 Alcohol/Substance Use Screening 10/02/2025 10/02/2024 Depression Screening 10/02/2025 10/02/2024, 10/02/19 SDOH Screening 10/02/2025 10/02/2024 Tobacco Screening 10/02/2025 10/02/2024 Lipid Panel 07/15/2027 07/15/2022, 0508/2020, 06/23/2020 Colonoscopy 07/27/2033 07/27/2023 Colorectal Cancer Screening 07/27/2033 DTaP/Tdap/Td Vaccines (3 - Td or Tdap) 10/02/2034 10/02/2024, 04/11/2012, 02/13/2008 RSV Patients and Patients Aged 60 years or older (1 - 1-dose 75+ series) 12/24/2035 Hepatitis B Vaccines Completed 11/18/2008, 05/16/2008, 04/01/2008 Influenza Vaccine Completed 10/02/2024, , 05/23/2018, Additional history exists HIB Vaccines Aged Out No longer eligi ble based on patient's age to complete this topic HPV Vaccines Aged Out No longer eligi ble based on patient's age to complete this topic Hepatitis A Vaccines Aged Out No long er eligible based on patient's age to complete this topic IPV Vaccines Aged Out No longer eligi ble based on patient's age to complete this topic Meningococcal Vaccine Aged Out No bebo tim eligible based on patient's age to complete this topic RSV under 20 months Aged Out No longe r eligible based on patient's age to complete this topic Rotavirus Vaccines Aged Out No longer eligible based on patient's age to complete this topic Procedures Procedure Name Priority Date/Time Associated Diagnosis Comments POCT URINALYSIS DIPSTICK Routine 10/02/2024 2:48 PM EST Dysuria HM COLONOSCOPY Routine 07/27/2023 LIPID PANEL, STANDARD Routine 07/15/2022 8:56 AM EST from Last 3 Months or Most Recently Relevant to Health Maintenance Results * POCT Urinalysis (10/02/2024 2:48 PM EST) Pathologist [facility] Color, UA Yellow Clarity, UA Clear Glucose, [...] CARE TEST EN TER/EDIT ORDERABLES Final Result * Colonoscopy (07/27/2023) Pathologist [facility] Colonoscopy Normal Normal Historical Provider HEALTH MAINTENANCE Final Result * LIPID PANEL, STANDARD (07/15/2022 8:56 AM EST) Pathologist [facility] Chol/HDLC Ratio 2.9 <5.0 (calc) CONVERTED LEGACY LABS Cholesterol, Total 185 <200 mg/dL CONVERTED LEGACY LABS HDL Cholesterol 64 > OR = 40 mg/dL CONVERTED LEGACY LABS LDL Cholesterol 98 mg/dL (calc) CONVERTED LEGACY LABS Comment: Reference range: <100 ?? Desirable range <100 mg/dL for primary prevention; ?? <70 mg/dL for patients with CHD or diabetic patients ?? with > or = 2 CHD risk factors. ?? LDL-C is now calculated using the Nimco ?? calculation, which is a validated novel method providing ?? better accuracy than the Friedewald equation in the ?? estimation of LDL-C. ?? Sean UREÑA et al. ZAHRA. 2013;310(19): 4019-9333 ?? (http://education.SkinMedica.Visual IQ/faq/SSX292) Non-HDL Cholesterol 121 <130 mg/dL (calc) CONVERTED LEGACY LABS Comment: For patients with diabetes plus 1 major ASCVD risk ?? factor, treating to a non-HDL-C goal of <100 mg/dL ?? (LDL-C of <70 mg/dL) is considered a therapeutic ?? option. Triglycerides 133 <150 mg/dL CONVE RTED LEGACY LABS 07/15/2022 8:56 AM EST Rick Araya MD LAB BLOOD ORDERABLES Final Result CONVERTED LEGACY LABS from Last 3 Months or Most Recently Relevant to Health Maintenance [place] [address] [place] [address] Care Teams Steam Conditioning Operator Relationship Specialty Start Date End Date Rick Brian MD [address] [place] [phone] PCP - General Internal Medicine 07/01/14
--- OUTSIDE RECORDS SUMMARY | 2024-10-02 17:12 | XMS_ITS | Encounter Summary ---
Author Organization [employer] Address [address] [facility] 7t [place] [address] Care Team Providers Care Internal Medicine Physician Assistant Name Role Phone Rick Brian MD Primary Care Provide r Encounter Details Date Type Department Care Team ([facility] st Contact Info) Description 11/29/2022 Orders Only [facility] MED & PEDS [address] [place] [address] Luh Nayak LPN Social History Tobacco Use Types Packs/Day Years Used Date Smoking Tobacco: Never Assessed Sex and Gender Information Value Date Recorded [...] on filedocumented in this encounter Care Teams Internal Medicine Physician Assistant Relationship Specialty Start Date End Date Rick Brian MD [address] [place] [phone] PCP - General Internal Medicine 07/01/14 documented as of this encounter
--- OUTSIDE RECORDS SUMMARY | 2024-10-02 17:12 | XMS_ITS | Encounter Summary ---
Author Organization [employer] Address [address] [facility] 7t [place] [address] Care Team Providers Care Nail Making Machine Setter Name Role Phone Rick Brian MD Primary Care Provide r Encounter Details Date Type Department Care Team ([facility] st Contact Info) Description 02/18/2023 Orders Only [facility] MED & PEDS [address] [place] [address] Luh Nayak LPN Social History Tobacco Use [...] on filedocumented in this encounter Care Teams Nail Making Machine Setter Relationship Specialty Start Date End Date Rick Brian MD [address] [place] [phone] PCP - General Internal Medicine 07/01/14 documented as of this encounter
[2024-10-03 01:49] LABS: CT PCR NOT DETECTED (Not Detect.); NG PCR NOT DETECTED (Not Detect.)
== END 2024-10-02 17:07 | disposition home or self-care (01) ==
LOC: HO.HHCLNP 17:06
PROVIDERS: Visit Provider Internal Medicine
DX: R30.0 Dysuria (principal)
CPT/HCPCS: 87491; 87591

== ENCOUNTER 2025-01-11 09:41 | Outpatient (REF) | payer MEDICAID, SELFPAY ==
--- OUTSIDE RECORDS SUMMARY | 2025-01-11 09:58 | XMS_ITS | Clinical Summary ---
Author Organization [email or web address] Address [address] [place] [address] 7t [place] [address] Care Team Providers Care Technical Account Executive Name Role Phone Rick Brian MD Primary Care Provide r Allergies No known active allergies Medications triamcinolone (Kenalog) 0.5 % cream APPLY TO THE AFFECTED AREA TOPICALLY two (2) times a day. apply a thin layer 60 g 3 Active triamcinolone (Kenalog) 0.5 % cream APPLY TO THE AFFECTED AREA TOPICALLY two (2) times a day. apply a thin layer 3 Active Bisacodyl EC 5 MG EC tablet Take 5 mg by mouth if needed each day for constipation. 3 Active meloxicam (Mobic) 7.5 MG tablet TAKE 1 TABLET BY MOUTH two (2) times a day 60 tablet 4 Active amLODIPine (Norvasc) 10 MG tabletIndications :Primary hypertension Take 1 tablet (10 mg) by mouth Once per day. 90 tablet 1 5 Active hydroCHLOROthiazi de (HYDRODiuril) 25 MG tabletIndications :Primary hypertension Take 1 tablet (25 mg) by mouth Once per day. 90 tablet 1 5 Active omeprazole (PriLOSEC) [address] capsuleIndication s:Gastroesophagea l reflux disease without esophagitis Take 1 capsule (40 mg) by mouth before breakfast. Do not crush or chew. 180 capsule 1 5 Active Diclofenac Sodium 1 % gel APPLY 1 gramos TOPICALLY IN THE MORNING, AT NOON, AND AT BEDTIME NEEDED FOR PAIN 100 g 5 Active Active Problems Problem Noted Date Diagnosed Date Tinnitus of both ears 10/02/2024 Assessment & Plan (10/02/2024 2:25 PM EST): Pt with previous c/o persistent bilateral tinnitus. Physical exam within normal limits. Pt reports working at a [employer] for seven years where he was examined [...] to have a DONNA ECHO done at [facility] ? a cardiac mass. He was seen by Glaucoma Specialist who ordered a Cardiac MRI. This was done at [facility] and showed NO cardiac mass, only dilated [...] findings. Pt continues to follow with [facility] for steroid injections, he [...] Encounters Date Type Department Care Team Description 11/17/[address] [facility] WALK-IN CENTER [address] [place] [address] Donna Reeder ANP from Last 3 Months Immunizations Immunization Administration Dates Next Due Hep B, adult [...] your housing situation today? I have jluis sing 10/02/[address] you li [...] 10/02/2024 1:49 PM EST Plan of Treatment Upcoming Encounters Date Type Department Care Team (Late st Contact Info) Description 01/17/2025 2:15 PM EDT Office Visit [facility] MEDICINE [address] [place] [address] Rick Brian MD [address] [place] [address] Health Maintenance Due Date Last Done Comments CT Colonography 1960 FIT DNA/Cologuard 1960 FIT 1960 FOBT 1960 HIV Screening 1960 Sigmoidoscopy 1960 Hepatitis C Screening 1978 Pneumococcal Vaccine: 50+ Years (1 of 2 - PCV) 12/24/1979 Zoster Vaccines (1 of 2) 2010 COVID-19 Vaccine ( - season) 2024 09/02/2021, 10/30/2020, 10/09/2020 Alcohol/Substance Use Screening 10/02/2025 10/02/2024 Depression Screening 10/02/2025 10/02/2024, 10/02/19 25 SDOH Screening 10/02/2025 10/02/2024 Tobacco Screening 10/02/2025 [...] patient's age to complete this topic Meningococcal B Vaccine Aged Out No l onger eligible based on patient's age to complete [...] Procedure Name Priority Date/Time Associated Diagnosis Comments COLONOSCOPY Routine 07/27/2023 LIPID PANEL, STANDARD Routine 07/15/2022 8:56 AM EST from Last 3 Months or Most Recently Relevant to Health Maintenance Results * Colonoscopy (07/27/2023) Colonoscopy Normal Normal us Historical Provider MD HEALTH MAINTENANCE Final Result * LIPID PANEL, STANDARD (07/15/2022 8:56 AM EST) Chol/HDLC Ratio 2.9 <5.0 (calc) CONVERTED LEGACY [...] ?? LDL-C is now calculated using the Sean-Campbell ?? calculation, which is a validated novel method providing ?? better accuracy than the Friedewald equation in the ?? estimation of LDL-C. ?? Sean UREÑA et al. ZAHRA. 2013;310(19): 5690-1581 ?? (http://education.Formabilio.com/faq/YHB002) Non-HDL Cholesterol 121 <130 mg/dL (calc) CONVERTED [...] Most Recently Relevant to Health Maintenance Insurance [facility] Care Teams Technical Account Executive Relationship Specialty Start Date End Date Rick Brian MD [address] [place] [phone] PCP - General Internal Medicine 07/01/14
--- OUTSIDE RECORDS SUMMARY | 2025-01-11 09:58 | XMS_ITS | Encounter Summary ---
Author Organization [employer] Address [address] [place] [address] 7t [place] [address] Care Team Providers Care Intelligence Operations Name Role Phone Rick Brian MD Primary Care Provide r Encounter Details Date Type Department Care Team (Late st Contact Info) Description 02/18/2023 Orders Only [facility] CHC MED & PEDS [address] [place] [address] Luh Nayak LPN Social History Tobacco Use Types Packs/Day Years Used Date Smoking Tobacco: Never Assessed Sex and Gender Information Value Date Recorded Sex Assigned at Male 06/28/2022 10:17 AM EDT Legal Sex Male 10:17 AM EDT Gender Identity Male 06/28/2022 10:17 AM EDT Sexual Orientation Choose not to disclose 2021 10:17 AM EDT documented as of this encounter Plan of Treatment Upcoming Encounters Date Type Department Care Team (Late st Contact Info) Description 01/17/2025 2:15 PM EDT Office Visit [facility] MEDICINE [address] [place] [address] Rick Brian MD [address] [place] [phone] documented as of this encounter Visit Diagnoses Not on filedocumented in this encounter Care Teams Intelligence Operations Relationship Specialty Start Date End Date Rick Brian MD [address] [place] [phone] PCP - General Internal Medicine 07/01/14 documented as of this encounter
--- OUTSIDE RECORDS SUMMARY | 2025-01-11 09:58 | XMS_ITS | Encounter Summary ---
Author Organization [employer] Address [address] [facility] 7t [place] [address] Care Team Providers Care Ergonomist Name Role Phone Rick Brian MD Primary Care Provide r Reason for Visit * Reason Comments Med Refill Encounter Details Date Type Department Care Team (Late Contact Info) Description 11/29/2023 Refill [facility] CHC MED & PEDS [address] [place] [address] Rick Brian MD [address] [place], [place] [phone] Social History Tobacco Use Types Packs/Day Years [...] Encounters Date Type Department Care Team (Late Contact Info) Description 01/17/2025 2:15 PM EDT Office Visit [facility] MEDICINE [address] [place], [place] [phone] Rick Brian MD [address] [place], [place] [phone] documented as of this encounter Visit Diagnoses Not on filedocumented in this encounter Care Teams Ergonomist Relationship Specialty Start Date End Date Rick Brian MD [address] [place] [phone] PCP - General Internal Medicine 07/01/14 documented as of this encounter
--- OUTSIDE RECORDS SUMMARY | 2025-01-11 09:58 | XMS_ITS | Encounter Summary ---
Author Organization [email or web address] Address [address] [place] [address] [address]t [place] [address] Care Team Providers Care Sales And Merchandising Associate Name Role Phone Rick Brian MD Primary Care Provide r Encounter Details Date Type Department Care Team (Late st Contact Info) Description 11/29/2022 Orders Only [facility] CH[facility] MED & PEDS [address] [place] [address] Luh Nayak LPN Social History Tobacco Use [...] Description 01/17/2025 2:15 PM EDT Office Visit [facility] MED[facility] [address] [place] [address] Rick Brian MD [address] [place] [phone] documented as of this encounter Visit Diagnoses Not on filedocumented in this encounter Care Teams Sales And Merchandising Associate Relationship Specialty Start Date End Date Rick Brian MD [address] [place] [phone] PCP - General Internal Medicine 07/01/14 documented as of this encounter
[2025-01-11 12:11] LABS: Alanine Aminotransferase 47 U/L (0-40); Albumin Level 4.3 g/dL (3.5-5.0); Alkaline Phosphatase 105 U/L (39-117); Anion Gap 10 (12-20); Aspartate Amino Transferase 36 U/L (5-37); Bilirubin Total 0.6 mg/dL (0.0-1.0); Blood Urea Nitrogen 11 mg/dL (9-16); Calcium 9.4 mg/dL (8.4-10.2); Carbon Dioxide 27 mmol/L (22-29); Chloride 105 mmol/L (96-108); Cholesterol 177 mg/dL (<200); Estimated Glomerular Filt Rate > 60; Glucose Random 91 mg/dL (60-115); HDL Cholesterol 70 mg/dL (>40); LDL Cholesterol Calculated 94 mg/dL (<100); Potassium 4.4 mmol/L (3.3-5.1); Sodium 138 mmol/L (135-145); Total Protein 7.1 g/dL (6.5-8.0); Triglycerides 69 mg/dL (<150)
[2025-01-11 12:20] LABS: Prostate Specific Antigen Scr 0.71 ng/mL (<0.05-4.0)
[2025-01-11 12:25] LABS: Syphilis Screen Nonreactive (Nonreactive)
[2025-01-11 12:29] LABS: HBS Num1 0.04 mIU/mL (0-7.99); HBc Num1 0.05 S/CO (0.00-0.79); HBsAGNum1 0.44 S/CO (0.00-0.99); HIV AB/AG Nonreactive (Nonreactive); HIV Num 1 0.06 S/CO (0.00-0.99); Hepatitis B Core Antibody Nonreactive (Nonreactive); Hepatitis B Surface Antigen Negative (Negative); ~HepC Num1 0.14 S/CO (0.00-0.79); ~Hepatitis B Surface Antibody NONREACTIVE (Nonreactive); ~Hepatitis C Antibody Nonreactive (Nonreactive)
== END 2025-01-11 09:42 | disposition home or self-care (01) ==
LOC: HO.HHCL 09:41
PROVIDERS: Visit Provider Internal Medicine
DX: Z00.00 Encounter for general adult medical examination without abnormal findings (principal); Z11.4 Encounter for screening for human immunodeficiency virus [HIV]; Z12.5 Encounter for screening for malignant neoplasm of prostate; I10 Essential (primary) hypertension; R30.0 Dysuria
CPT/HCPCS: 36415; 80053; 80061; 84153; 86704; 86706; 86780; 86803; 87086; 87340; 87389